=== PATIENT | female | born 1970 ===

== ENCOUNTER 2024-09-20 16:00 | Outpatient (RCR) | payer OTHER, SELFPAY ==
--- NOTE | 2024-08-01 17:07 | MHC.PT.EP ---
[facility] [place] Office [place] [facility] [place] [facility] [address] [phone] F: [phone] F: [phone] F: [phone] F: [phone] Physical Therapy Plan of Care Date of Evaluation: 08/01/24 Date of Surgery: Diagnosis: L hip OA Assessment: Pt is a 53 y/o F who is referred to PT for eval and treat of L hip OA resulting in decreased tolerance or ability for walking, sleeping, sitting and getting dressed secondary to decreased hip strength and ROM, TTP greater trochanter, proximal quds and gait abnormality. Pt is motivated and is deemed an appropriate candidate to receive skilled PT services to address their physical impairments in order to improve her function. Frequency and Duration: The patient will be seen 2x/week for 4 weeks Short Term Goals: Initiate home exercise program. Pt will improve L hip flex ROM to 90 deg; initial 30 deg painful. Pt will report at most 6/10 pain; initial 10/10. Chcf Goals: Pt will be I with home exercise program. Pt will improve B hip abd strength by 1/2 grade; initial 4/5. Pt will report at most moderate difficulty with light HH activities; initial extreme difficulty or unable. Pt will improve LEFI score by at least 9 points. Treatment Plan: Modalities to reduce pain, spasms and effusion. Manual therapy to restore motion and function. Therapeutic exercise to improve strength and flexibility. Neuromuscular re-education for posture and balance. Therapeutic activities to return to functional activities of daily living. Electronically signed by: Chapo Mai PT. Please sign and return to therapist. Thank you for your referral.
--- NOTE | 2024-09-22 09:58 | MHC.PT.DC ---
[facility] [place] Office [place] Office [place] Office [address] [phone] F: [phone] F: [phone] F: [phone] F: [phone] Physical Therapy Discharge Report Diagnosis: L hip OA Date of Surgery: Date of Evaluation: 08/01/24 Date of Discharge: 09/22/24 Treatments to Date: 9 Cancellations to Date: No Shows to Date: Discharge Status: Independent with HEP Recommend MD Follow-up Discharge Summary: Brit has been an active participant in her therapy however she continues to report her same pain and complaints of function persist; She is recommended to f/u with her MD providers. Electronically signed by: Chapo Mai PT. Please sign and return to therapist. Thank you for your referral.
== END 2024-09-22 09:57 | disposition home or self-care (01) ==
LOC: HO.PT 16:00
PROVIDERS: PCP Nurse Practitioner; Visit Provider Orthopaedic Surgery
DX: M16.12 Unilateral primary osteoarthritis, left hip (principal)
CPT/HCPCS: 97110; 97161; 97530

== ENCOUNTER → 2024-11-21 14:14 | Outpatient (BNVA) | payer OTHER, SELFPAY | DX: Z01.818 Encounter for other preprocedural examination (principal) ==

== ENCOUNTER 2024-12-21 10:10 | Outpatient (REF) | payer OTHER, SELFPAY ==
--- OUTSIDE RECORDS SUMMARY | 2024-12-22 11:02 | XMS_ITS | Encounter Summary ---
Author Organization [facility] Address [address] [place] [address] Care Team Providers Care Oven Press Tender Name Role Phone Tari Nam NP Primary Care Provider Reason for Visit * Reason Comments Pre-op Clearance Encounter Details Date Type Department Care Team (Latest Contact Info) Description 11/27/2024 2:00 PM EST Office Visit [facility] [place] [address] [place] [phone] Tari Nam NP [address] [facility] [address] Primary osteoarthritis of left hip (Primary Dx) Social History Tobacco Use Types Packs/Day Years Used Date Smoking Tobacco: Some Days Cigarettes 0.1 10 Smokeless Tobacco: Never Tobacco Cessation:Ready to Q uit: Not Asked; Counseling Given: Not Answered Alcohol Use Standard Drinks/Week Comments Yes 0 (1 standard drink = 0.6 oz pur e alcohol) Occasional Social Connections Answer Date Recorded Connectedness 1 09/11/2024 Financial Resource Strain Answer Date R ecorded Financial Resource Strain 1 2023 Stress Answer Date Recorded Stress 1 09/11/2024 Physical Activity Answer Date Recorded Physical Activity 0 08/08/2019 Food Insecurity Answer Date Recorded Food 1 09/11/2024 Transportation Needs Answer Date Record ed Transportation 1 09/11/2024 Housing Stability Answer Date Recorded Housing 1 09/11/2024 Safety and Environment Answer Date Issa rded Safety 1 03/01/2024 Utilities Answer Date Recorded Utilities 1 09/11/2024 Employment Answer Date Recorded Stress 0 08/05/2023 Comments No Sex and Gender Information Value Date Recorded Sex Assigned at Female 08/08/2019 2:38 PM PDT Legal Sex Female 8:14 AM PDT Gender Identity Female 08/08/2019 2:38 PM PDT Sexual Orientation Straight 08/08/2019 2: 38 PM PDT Occupation Industry Job Start Date Job End Date [employer] Not on file Not on file Not on file COVID-19 Exposure Response Date Recorded In the last 10 days, have rohan u been in contact with someone who was confirmed or suspected to have Coronavirus/COVID-19? No / Unsure 11/27/2024 1:43 PM EST documented as of this encounter Last Filed Vital Signs Vital Sign [place] Time Taken Comments Blood Pressure 128/80 11/27/2024 2:01 PM EST Pulse 98 11/27/2024 2:01 PM EST Temperature 36.6 ??C (97.9 ??F) 11/27/2024 2:01 PM ES T Respiratory Rate 18 11/27/2024 2:01 PM EST Oxygen Saturation 99% 11/27/2024 2:01 PM EST Inhaled Oxygen Concentration - - Weight 75.3 kg (166 lb) 11/27/2024 2:01 PM EST Height 152.4 cm (5') 11/27/2024 2:01 PM EST Body Mass Index 32.42 11/27/2024 2:01 PM EST documented in this encounter Progress Notes * Tari Nam NP - 11/27/2024 2:31 PM EST I have reviewed the patient???s medical history, physical exam findings, laboratory and/or images, and the assessment and plan as documented in above mentioned note. I am in agreement with the plan of care as documented in the note by Yuan WISEMAN student * Yuan Askew - 11/27/2024 2:00 PM EST Subjective: CC: Left total hip replacement pre-op Finished Cigar Maker: None, provider speaks patient's familiar language HPI: Brit ABBASI is a 54 year old female patient who presents to the office today for preoperative evaluation. She has a left total hip replacement scheduled with Dr. Mckinney at [facility]. Patient denies any history of respiratory problems, including asthma, wheezing, pneumonia, COPD, shortness of breath, or obstructive sleep apnea. She is a current smoker, but is working on smoking cessation. She reports smoking 2 cigarettes/day. Also reports a family history of COPD in her mother. Recently experienced stress due to her father???s hospitalization for heart attack this week. Denies any history of cardiac complications, arrhythmia, murmur, seizures, or stroke. Denies history of drug oralcohol abuse. Denies any history of infections, including tuberculosis, hepatitis B or C, or HIV. Used ibuprofen in October 2024 due to inability to take pain medications but is not currently taking tramadol or using compression stockings. Denies any history of bleeding disorders or adverse reactions to anesthesia. Type of surgical procedure: Left total hip replacement Name of surgeon: Guilherme Mckinney MD Date of procedure: 12/27/2024 Pre-operative testing requested by surgeon: Labs, EKG Pre-operative risks Respiratory limitations (hx asthma, wheezing, pnuemonia, COPD, SOB, cough, PATTY, smoking hx, lung CAhx, uses O2):Yes - Current smoker (2 cigarettes/day) Cardiac limitations (hx IA, CABG, pacemaker, arrhythmias, murmur): No Neuro (hx seizures, CVA): No Previous surgical hx: Past Surgical History: Procedure Laterality Date ABDOMINAL HERNIA REPAIR CYSTOCELE REPAIR HYSTERECTOMY, PARTIAL Hx blood clots, bleeding disorders, or anti-coagulants: No Hx adverse reaction to anesthesia: No H/o drug or alcohol abuse: No H/o infections disease (TB, Hepatitis, HIV): No Medications pt is on: Current Outpatient Medications Medication Sig Dispense Refill traMADoL (ULTRAM) 50 mg tablet Take 1 Tablet by mouth 4 (four) times daily as needed for pain 20 Tablet 0 comp.stocking,thigh,long,large Please dispense 1 pairs of compression stockings 15 mmhg . lifetime 3 Each 11 No current facility-administered medications for this visit. Patient Active Problem List Diagnosis Arthritis Vitamin D deficiency Chronic left hip pain Primary osteoarthritis of left hip Osteoarthritis of right knee Class 1 obesity due to excess calories with serious comorbidity and body mass index (BMI) of 33.0 to 33.9 in adult Varicose veins of both lower extremities No Known Allergies Review of systems Review of Systems Remainder ROS: See HPI, systems reviewed and are otherwise negative or noncontributory. Objective: Vitals: 11/27/24 1401 BP: 128/80 Pulse: 98 Resp: 18 Temp: 97.9 ??F (36.6 ??C) TempSrc: Oral SpO2: 99% Weight: 166 lb (75.3 kg) Height: 5' (1.524 m) Body mass index is 32.42 kg/m??. Physical Exam Lifestyle measures:BMI follow up plan: The patient was counseled regarding nutrition and physical activity. Tobacco Intervention:provided tobacco cessation counseling provided smoking cessation counseling Depression screen: PHQ-9 Total Score (Auto Calculated) 0 at 09/11/2024 1:00 PM 11/27/2024 2:01 PM How many times in the past year have you had 4 or more drinks in a day? NONE How many times in the past year have you used a recreational drug or used a prescription medicationfor nonmedical reasons? NONE The 10-year ASCVD risk score (Shayna CORONADO, et al., 2019) is: 4% Assessment and Plan: Brit ABBASI is a 54 year old female patient who was seen today for evaluation of preop clearance M16.12 Primary osteoarthritis of left hip (primary encounter diagnosis) Plan : BLOOD COUNT COMPLETE AUTOMATED - Patient has a left total hip replacement scheduled for 12/27/24. - Ordered CBC to check on RBC. Previous 06/2024 CBC showed RBC of 3.57. - No ECG abnormalities today. Normal sinus rhythm. Plan Perioperative surgical recommendations: No absolute contraindication to surgery . No blood things before surgery, concults with surgeon fo rany medication to hold if needed documented in this encounter Miscellaneous Notes * Patient Instructions - Tari Nam NP - 11/27/2024 2:32 PM EST If you are not able to keep your appointment please call 24-48 hours before your appointment to cancel or reschedule. documented in this encounter Plan of Treatment Scheduled Orders Name Type Priority Associated Diagnoses Orde r Schedule BLOOD COUNT COMPLETE AUTOMATED Lab Routine Primary osteoarthritis of left hip Ordered: 11/27/2024 documented as of this encounter Visit Diagnoses Diagnosis Primary osteoarthritis of left hip- Primary Primary localized osteoarthrosis, pelvic region and thigh documented in this encounter Additional Health Concerns Assessment Noted Time PHQ-9 Depression Total Score: 0 09/11/20 24 1:00 PM PDT documented as of this encounter Care Teams Oven Press Tender Relationship Specialty Start Date End Date Tari Nam NP [facility] [id number] PCP - General Internal Medicine 08/05/22 documented as of this encounter
--- OUTSIDE RECORDS SUMMARY | 2024-12-22 11:02 | XMS_ITS | Encounter Summary ---
Author Organization [facility] Address [address] [place] [address] Care Team Providers Care Training Development Specialist Name Role Phone Tari Nam NP Primary Care Provider Encounter Details Date Type Department Care Team (Latest Contact Info) Description 12/21/2024 2:20 PM EST Telemedicine Visit [address] [id number] [place] [phone] Tari Nam NP [address] 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 No / Unsure 11/27/2024 1:43 PM EST documented as of this encounter Progress Notes * Tari Nam NP - 12/21/2024 2:46 PM EST Subjective: Brit ABBASI is a 54 year old female here for No chief complaint on file. The following visit was conducted via Telephone. I educated the patient on the terms of telehealth and the patient verbally consented to this telemedicine visit. The patient was identified using their Name, and [facility] ID. I identified myself as Tari aNm NP from [facility]. It was conducted in a private space to protect HIPPA sensitive information. Precautions were takento provide confidentiality and security and patient was made aware of privacy considerations. The patients location was obtained and is Pts home The patient was notified that the services were being provided from [facility]). The patient was notified how they can see a clinician in- person in the event of an emergency or if otherwise needed. Visit START TIME 247p END TIME 254p Green Chain Worker used during visit? No Pt having technical issues with video HPI: Brit ABBASI is 54 year old female is here for sinus symptoms. Has been experiencing a sinus infection, which initially got better but still has some symptoms. No listed allergies. Upcoming surgery is scheduled for Wednesday. Mentioned that climate change is causing issues with allergies and sinuses. No feelings of depression reported. Pharmacy location is [facility] Depression screening:DEPRESSION FU PROVIDED ( CMS-2): Counseling / education in visit and Assessed, follow-up as needed ROS Review of Systems See HPI, remainder of ROSs negative or non-contributory. PMHx Patient Active Problem List Diagnosis Arthritis Vitamin D deficiency Chronic left hip pain Primary osteoarthritis of left hip Osteoarthritis of right knee Class 1 obesity due to excess calories with serious comorbidity and body mass index (BMI) of 33.0 to 33.9 in adult Varicose veins of both lower extremities Medications Current Outpatient Medications on File Prior to Visit Medication Sig Dispense Refill traMADoL (ULTRAM) 50 mg tablet Take 1 Tablet by mouth 4 (four) times daily as needed for pain 20 Tablet 0 comp.stocking,thigh,long,large Please dispense 1 pairs of compression stockings 15 mmhg . lifetime 3 Each 11 No current facility-administered medications on file prior to visit. Objective: GENERAL/Psych: Pt sounds happy w/normal, age appropriate thought process Remaining physical exam components deferred d/t nature of telehealth encounter. Assessment/Plan: Brit ABBASI is 54 year old female is here for J32.1 Chronic frontal sinusitis (primary encounter diagnosis) Plan : AMOXICILLIN 500 MG-POTASSIUM CLAVULANATE 125 MG TABLET - Take 1 Tablet by mouth 2 (two) times daily for 7 days Follow Up: No follow-ups on file. documented in this encounter Miscellaneous Notes * Patient Instructions - Tari Nam NP - 12/21/2024 2:54 PM EST If you are not able to keep your appointment please call 24-48 hours before your appointment to cancel or reschedule. documented in this encounter Plan of Treatment Not on file documented as of this encounter Visit Diagnoses Diagnosis Chronic frontal sinusitis- Primary documented in this encounter Additional Health Concerns Assessment Noted Time PHQ-9 Depression Total Score: 0 12/21/19 25 2:53 PM PST documented as of this encounter Care Teams Training Development Specialist Relationship Specialty Start Date End Date Tari Nam NP [address] [place] [address] PCP - General Internal Medicine 08/05/22 documented as of this encounter
--- OUTSIDE RECORDS SUMMARY | 2024-12-22 11:03 | XMS_ITS | Clinical Summary ---
[facility] Address [address] [place] [address] Care Team Providers Care Marketing Analytics Manager Name Role Phone Tari Nam Primary Care Provider Surgical History Surgery Date Site/Laterality Comments TUBAL LIGATION Bilateral PROCEDURE: HISTORICAL TUBAL LIGATION BLADDER SUSPENSION PROCEDURE: HISTORICAL BLADDER SUSPENSION HERNIA REPAIR PROCEDURE: HISTORICAL HERNIA REPAIR/UMB Social History Tobacco Use Types Packs/Day Years Used Date Smoking Tobacco: Every Day Smokeless Tobacco: Never Alcohol Use Standard Drinks/Week Comments Not Currently 0 (1 standard drink = 0.6 oz pur e alcohol) Sex and Gender Information Value Date Recorded Sex Assigned at Not on file Gender Identity Not on file Sexual Orientation Not on file Obstetrics History Last Filed Vital Signs Vital Sign Reading Time Taken Comments Blood Pressure - - Pulse - - Temperature - - Respiratory Rate - - Oxygen Saturation - - Inhaled Oxygen Concentration - - Weight 76.7 kg (169 lb) 03/30/2023 1:03 PM EDT Height 152.4 cm (5') 03/30/2023 1:03 PM EDT Body Mass Index 33.01 03/30/2023 1:03 PM EDT Plan of Treatment Health Maintenance Due Date Last Done Comments Breast Cancer Screening 1968 Pneumococcal Vaccine: Pediat rics (0 to 5 Years) and At-Risk Patients (6 to 64 Years) (1 of 2 - PCV) 1974 Hepatitis B Vaccines (1 of 3 - 19+ 3-dose series) 1987 Cervical Cancer Screening: P ap Smear 1989 Zoster Vaccines (1 of 2) 2018 Colorectal Cancer Screening: Colonoscopy 10/18/2022 Depression Screening 10/18/2022 HIV Screening 10/18/2022 Hepatitis C Screening 10/18/2022 Social Influencers of Health Screening 10/18/2022 COVID-19 Vaccine ( - 2023-2 5 season) 2024 Influenza Vaccine (#1) 2024 DTaP,Tdap,and Td Vaccines (2 - Td or Tdap) 06/05/2025 06/05/2015 HIB Vaccines Aged Out No longer eligi ble based on patient's age to complete this topic HPV Vaccines Aged Out No longer eligi ble based on patient's age to complete this topic Hepatitis A Vaccines Aged Out No long er eligible based on patient's age to complete this topic IPV Vaccines Aged Out No longer eligi ble based on patient's age to complete this topic MMR Vaccines Aged Out No longer eligi ble based on patient's age to complete this topic Meningococcal ACWY Vaccine Aged Out N o longer eligible based on patient's age to complete this topic RSV Immunization Patients Un zhao 20 months Aged Out No longer eligible b ased on patient's age to complete this topic Varicella Vaccines Aged Out No longer eligible based on patient's age to complete this topic Care Teams Marketing Analytics Manager Relationship Specialty Start Date End Date Tari Nam PCP - General 06/28/24
--- OUTSIDE RECORDS SUMMARY | 2024-12-22 11:03 | XMS_ITS | Encounter Summary ---
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 No / Unsure 11/27/2024 1:43 PM EST documented as of this encounter Plan of Treatment Not on file documented as of this encounter Visit Diagnoses Not on filedocumented in this encounter Additional Health Concerns Assessment Noted Time PHQ-9 Depression Total Score: 0 09/11/20 24 1:00 PM PDT documented as of this encounter Care Teams Trigonometry Tutor Relationship Specialty Start Date End Date Tari Nam NP [address] [place] [address] PCP - General Internal Medicine 08/05/22 documented as of this encounter
--- OUTSIDE RECORDS SUMMARY | 2024-12-22 11:03 | XMS_ITS | Continuity of Care Document ---
Author Organization [facility] Address [address] [place] [address] Care Team Providers Care Science Analyst Name Role Phone Van Lawrence NP Primary Care Physician [id number] Date[facility]s): 10/30/24 - 11/29/24 [facility] [address] [place] [id number] Attending Physician: Natalya Morales Admitting Physician: Natalya Morales Referring Physician: Natalya Morales Encounter Type: Triage Allergies, Adverse Reactions, Alerts No Known Allergies Medications amoxicillin 500 mg oral capsule 0 Refills, Maintenance, 10/30/24 1:57:00 PM EST, Partial fill upon patient request if the prescription is for a schedule II opioid drug. Start Date: 10/30/24 Status: Ordered Repeat number: 1 ibuprofen 600 mg oral tablet 600 mg, 1, tablet, By Mouth, Every 6 hours, PRN, # 100 tablet, Refills 0, Tot. Refills 0, Maintenance, for pain, 06/10/20 1:21:00 PM EDT, Route to Pharmacy Electronically, [facility] #[id number],144.78, cm, 06/10/20 9:53:00 EDT, Height, 77.5, kg, 06/10/20 9:53:00 EDT, Dry Weight Start Date: 06/10/20 Status: Ordered Quantity: 100.0 Unit: tablet Repeat number: 1 MiraLax oral powder for reconstitution = 17 Gm, By Mouth, Daily, dissolve in water before taking, # 255 Gm, 0 Refills, Maintenance, 06/10/20 1:21:00 PM EDT, REC Powder, [facility] #[id number], 17 Gm By Mouth Daily,Instr:dissolve in water before taking, 144.78, cm, 06/10/20 9:53:00 EDT, Height, 77.5, kg, 06/10/20 9:53:00 EDT, Dry Weight Start Date: 06/10/20 Status: Ordered Quantity: 255.0 Unit: g Repeat number: 1 oxyCODONE 5 mg oral tablet 5 mg, 1, tablet, By Mouth, Every 6 hours, PRN, For post operative pain, # 20 tablet, Refills 0, Tot. Refills 0, Maintenance, for pain, 06/10/20 1:21:00 PM EDT, Route to Pharmacy Electronically, [facility] #[id number], Partial fill upon patient request, 144.78, cm, 06/10/20 9:53:00 EDT, Height, 77.5, kg, 06/10/20 9:53:00 EDT, Dry Weight Start Date: 06/10/20 Status: Ordered Quantity: 20.0 Unit: tablet Repeat number: 1 PEG-[id number] with Electrolytes (Eqv-NuLYTELY) oral powder for reconstitution See Instructions, as directed, # 1 each, 0 Refills, Maintenance, 03/11/21 3:05:00 PM EDT, [facility] #[id number], ok to sub for any gallon prep, as directed, 144.78, cm, 07/16/20 13:53:00 EDT, Height, 80.3, kg, 07/16/20 13:53:00 EDT, Dry Weight Start Date: 03/11/21 Status: Ordered Quantity: 1.0 Unit: each Repeat number: 1 Senna 8.6 mg oral tablet 17.2 mg, 2, tablet, By Mouth, Daily at bedtime, PRN, # 100 tablet, Refills 0, Tot. Refills 0, Maintenance, for constipation, 06/10/20 1:21:00 PM EDT, Route to Pharmacy Electronically, [facility] #[id number] Tablet, 144.78, cm, 06/10/20 9:53:00 EDT, Height, 77.5, kg, 06/10/20 9:53:00 EDT, Dry Weight Start Date: 06/10/20 Status: Ordered Quantity: 100.0 Unit: tablet Repeat number: 1 Tylenol 325 mg oral tablet 650 mg, 2, tablet, By Mouth, Every 4 hours, PRN, # 100 tablet, Refills 0, Tot. Refills 0, Maintenance, for pain, 06/10/20 1:21:00 PM EDT, Route to Pharmacy Electronically, [facility] #[id number],144.78, cm, 06/10/20 9:53:00 EDT, Height, 77.5, kg, 06/10/20 9:53:00 EDT, Dry Weight Start Date: 06/10/20 Status: Ordered Quantity: 100.0 Unit: tablet Repeat number: 1 Problem List Condition Confirmation Course Effective Dates Status H ealth Status Informant Anxiety Confirmed Active Arthritis Confirmed Active hypothyroid Confirmed Active Overactive bladder Confirmed Active Palpitations Confirmed Active tobacco use disorder Confirmed Active Severe obesity (BMI 35.0-39.9) with comorbidity Confirmed Active Nonallopathic lesion of sacral region Confirmed Active Nonallopathic lesion of thoracic region Confirmed Active Lumbosacral ligament sprain Confirmed Active Social History Social History Type Response Tobacco Use: 4 or less cigar ettes(less than 1/4 pack)/day in last 30 days. Sex Sex Representation Female (finding) Implantable Device List Procedure Provider Procedure Date Device Type Site Repair Cystocele Anterior Margie Liz MD 06/10/20 Un known Vagina Device Identifier Serial Number Lot or Batch Number Manufacturing Date Expiration Date Distinct Identification Code MRI Safety Implantable Status Assigning Authority Unknown [id number] Unknown 06/14/24 Unknown Unknown Active Unknown Patient Care team information Care Team Personnel Name: Van Lawrence NP Position: [facility] Outreach Member Role: PCP Address: [address] [place] [address] Telecom: Care Team Related Persons Name: MARGE RAMOS Name: DAKOTA RAMOS Name: KESHIA ABBASI Insurance Providers Guarantor name: CELESTINO ABBASI Health Plan Information #: 1 Payer: [employer] NON HMO PLANS Member Number: NA Policy Number: NA Group Number: NA
--- OUTSIDE RECORDS SUMMARY | 2024-12-22 11:03 | XMS_ITS | Clinical Summary ---
Author Organization [facility] Address [address] [place] [address] Care Team Providers Care Cleaning Maid Name Role Phone Tari Nam MEGAN Primary Care Provider Source Comments PLEASE NOTE, if this patient is a minor, it may be UNLAWFUL to discuss sensitive information that is contained in these records (such as FAMILY PLANNING, MENTAL HEALTH or SUBSTANCE ABUSE) with the minor patient's parent or other person without the patient's specific authorization.[facility] Allergies No known active allergies Medications comp.adrianna parsons,georgette,largeIndica tions:Varicose veins of both lower extremities, unspecified whether complicated Please dispense 1 pairs of compression stockings 15 mmhg . lifetime 3 Each 11 09/11/20 24 Active traMADoL (ULTRAM) 50 mg tabletIndications: Primary osteoarthritis of right knee,Primary osteoarthritis of left hip Take 1 Tablet by mouth 4 (four) times daily as needed for pain 20 Tablet 10/30/20 24 Active amoxicillin-pot clavulanate (AUGMENTIN) 500-125 mg per tabletIndications: Chronic frontal sinusitis Take 1 Tablet by mouth 2 (two) times daily for 7 days 14 Tablet 12/21/19 25 025 Active Active Problems Problem Noted Date Diagnosed Date Osteoarthritis of right knee 09/11/2024 Class 1 obesity due to exces s calories with serious comorbidity and body mass index (BMI) of 33.0 to 33.9 in adult 09/11/2024 Varicose veins of both lower extremities 024 Chronic left hip pain 03/01/2024 Primary osteoarthritis of left hip 03/01/2024 Overview (09/11/2024): 09/11/24: at [place], with , going to [facility] she will have surgery post therapy in 2 week tisha garcia. Vitamin D deficiency 01/26/2021 Arthritis 08/08/2019 Overview (10/29/2022): 10/29/22: Xray of hip shows arthritis, treatment includes. She will like to hold off on inj and surgery at this time. Taking naproxen when pain is severe Encounters Date Type Department Care Team Description 12/21/2024 2:20 PM EST Telemedicine Visit [facility] [address] [place] [id number] Tari Nam, PLASTICS PROCESS HAND Chronic frontal sinusitis (Primary Dx) 11/27/2024 2:00 PM EST Office Visit [facility] [address] [place] [id number] Tari Nam, PLASTICS PROCESS HAND Primary osteoarthritis of left hip (Primary Dx) 11/27/2024 Travel 10/30/2024 3:20 PM EST Office Visit [facility] [address] [place] [phone] Tari Nam, PLASTICS PROCESS HAND Frequency of urination (Primary Dx); Pelvic pressure in female; Primary osteoarthritis of right knee; Primary osteoarthritis of left hip; Acute cystitis without hematuria 10/30/2024 Travel from Last 3 Months Immunizations Name Administration Dates Next Due Flu, Multi Dose 0.5 ML 08/27/2020 Flu, Preservative Free 08/05/2023,10/29/2022 Hep B,adult,adjuvanted (HEPLISAV) 03/01/2024 Influenza (FLUBLOK),recombinant,injectable,preservative Free 09/11/2024 PNEUMOCOCCAL CONJUGATE PCV 20 (Prevnar) 03/01/20 PNEUMOCOCCAL POLYSACCHARIDE PPV23 01/16/2021 TDAP 08/08/2019,06/05/2015 ZOSTER VACCINE, RECOMBINANT (SHINGRIX) 3,01/16/2021 Family History Medical History Relation Name Comments Heart attack Father Thyroid Disease Father Cancer Other Relation Name Status Comments Brother Alive 2 brothers Father Alive Mother Alive artritis,copd Other Sister Alive 2 sister Social History Tobacco Use Types Packs/Day Years [...] 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 No / Unsure 11/27/2024 1:43 PM EST Last Filed Vital Signs Vital Sign Reading [...] Mass Index 32.42 11/27/2024 2:01 PM EST Plan of Treatment Health Maintenance Due Date Last Done Comments HPV Screening 1968 Pap + HPV [address] Colonography 2013 Colonoscopy 2013 Colorectal Cancer Screening 2013 FIT/gFOBT 2013 Fecal DNA 2013 Flexible Sigmoidoscopy 2013 Imm-Hepatitis B (2 of 2 - Cp G 2-dose series) 03/29/2024 03/01/2024 [id number] ( season) 2024 021 Depression Monitoring 03/20/2025 12/21/2024 , 09/11/2024, 07/03/2024, Additional history exists Breast Cancer Screening (Mammogram) 04/21/2025 04/21/2024, 03/29/2023, 02/13/2022 Annual Preventive Care Visit 09/11/2025, 10/29/2022, 01/16/2021 Hypertension Screening (#1) 11/27/2025 Tobacco Cessation Counseling (#1) 11/27/2025 11/27/2024, 07/03/2024, 01/16/2021 Diabetes Screening 07/03/2027 07/03/2024, 0 07/03/2024, 08/25/2022, Additional history exists Lipid Screening 11/27/2027 11/27/2024, 08/15, 01/06/2021, Additional history exists Imm-DTaP/Tdap/Td (3 - Td or Tdap) 08/08/2029 019, 06/05/2015 Hepatitis C Screening Completed 01/06/2021 HIV Screening Completed 10/29/2022, 12/17, 08/10/2019 Imm-Zoster, Recombinant Completed 02/26/2023, 01/16 Imm-Pneumococcal Completed 03/01/2024, 01/16/2021 Imm-Influenza Completed 09/11/2024, 07/17, 10/29/2022, Additional history exists Alcohol and Drug Screen Completed 11/27/19, 09/11/2024, 07/03/2024, Additional history exists Cervical Ablation/Cold-Knife Conization Discontinued Cervical Cancer Screening Discontinued Cervical Cryotherapy Discontinued Colposcopy Discontinued Endometrial Biopsy Discontinued Excision/Leep Discontinued HPV Genotyping Discontinued Vaginal Pap Discontinued Vulvoscopy Discontinued Procedures Procedure Name Priority Date/Time Associated Diagnosis Comments CARD SCANNED DOCUMENT 11/28/2024 3:00 AM EST LIPID PANEL Routine 11/27/2024 2:29 PM EST Routine general medical examination at a health care facility Class 1 obesity due to excess calories with serious comorbidity and body mass index (BMI) of 33.0 to 33.9 in adult URINE CULTURE W ID & SENS Routine 10/30/2024 3:16 PM EST RFLX - REFLEXIVE URINE CULTURE Routine 10/30/2024 3:16 PM EST URINALYSIS, COMPLETE W/REFLEX TO CULTURE Routine 10/30/2024 3:16 PM EST Frequency of urination Pelvic pressure in female URINALYSIS, MULTISTIX (POCT) Routine 10/30/2024 3:07 PM EST Frequency of urination REFERRAL TO VASCULAR SURGERY Routine 10/30/2024 3:00 AM EST Varicose veins of both lower extremities, unspecified whether complicated REFERRAL SCANNED DOCUMENT 10/09/2024 3:00 AM EST COMPREHENSIVE METABOLIC PANEL Routine 07/03/2024 3:43 PM EDT Preoperative clearance REFERRAL FOR MAMMOGRAM Routine 3:00 AM EDT Breast cancer screening by mammogram HIV 1/2 AG & AB W/RFLX (4TH GEN) Routine 10/29/2022 3:21 PM EST Screening examination for venereal disease HEPATITIS C DIAGNOSTIC (LLMM) Routine 01/06/2021 10:59 AM EST Need for hepatitis C screening test from Last 3 Months or Most Recently Relevant to Health Maintenance Results * CARD SCANNED DOCUMENT (11/28/2024 3:00 AM EST) 11/28/2024 3:00 AM EST us Tari Nam PLASTICS PROCESS HAND SCAN ECGS Final Result * (ABNORMAL) LIPID PANEL (11/27/2024 2:29 PM EST) CHOLESTEROL, TOTAL 140 <200 mg/dL [facility] HDL CHOLESTEROL 49(L) > OR = 50 mg/dL [facility] TRIGLYCERIDES 83 <150 mg/dL [facility] LDL-CHOLESTEROL 74 99 mg/dL (calc) [facility] Comment: Reference range: <100 Desirable range <100 mg/dL for primary prevention; ?? <70 mg/dL for patients with CHD or diabetic patients with > or = 2 CHD risk factors. LDL-C is now calculated using the Oneal calculation, which is a validated novel method providing better accuracy than the Friedewald equation in the estimation of LDL-C. Zak WINSTON et al. DARSHAN. 2013;310(19): 7826-2479 (http://education.MixGenius/faq/EEX682) CHOL/HDLC RATIO 2.9 <5.0 (calc) [facility] NON-HDL CHOLESTEROL 91 <130 mg/dL (calc) [facility] Comment: For patients with diabetes plus 1 major ASCVD risk factor, treating to a non-HDL-C goal of <100 mg/dL (LDL-C of <70 mg/dL) is considered a therapeutic option. Blood Blood / Unknown 11/27/2024 2 :29 PM EST 11/27/2024 2:30 PM EST Narrative [facility] - 11/28/2024 5:30 AM EST FASTING:NO Tari Nam PLASTICS PROCESS HAND LAB - BLOOD DRAW Final Resul t [facility] [address] [address], [facility] [address] [address] * (ABNORMAL) URINE CULTURE W ID & SENS (10/30/2024 3:16 PM EST) Pathologist [facility] CULTURE See Note(A) [facility] Comment: ??CULTURE, URINE, ROUTINE ?Micro Number: ?[id number] ??Test Status: ? Final ??Specimen Source: ?? Urine ??Specimen Quality: ??Adequate ??Result: ?Greater than 100,000 CFU/mL of Escherichia coli ?E.coli ?INT ?? ROBINSON ?? AMOX/CLAVULANATE ? I ? 16 ?? AMP/SULBACTAM ?R ? >=32 ?? CEFAZOLIN ?R ? 8 1 ?? CEFEPIME ? S ? <=0.12 ?? CEFTAZIDIME ?S ? <=1 ?? CEFTRIAXONE ?S ? <=0.25 ?? CIPROFLOXACIN ?S ? 0.12 ?? GENTAMICIN ? R ? >=16 ?? IMIPENEM ? S ? <=0.25 ?? LEVOFLOXACIN ? S ? 0.25 ?? MEROPENEM ?S ? <=0.25 ?? NITROFURANTOIN ? S ? <=16 ?? PIP/TAZOBACTAM ? I ? 64 ?? TRIMETHOPRIM/SULFA ? R ? >=320 S = Susceptible ??I = Intermediate ??R = Resistant ??NS = Not susceptible SDD = Susceptible Dose Dependent ??* = Not Tested ??NR = Not Reported NN = See Therapy Comments THERAPY COMMENTS ?Note 1: ?For uncomplicated UTI caused by E. coli, ?K. pneumoniae or P. mirabilis: Cefazolin is ?susceptible if ROBINSON <32 mcg/mL and predicts ?susceptible to the oral agents cefaclor, cefdinir, ?cefpodoxime, cefprozil, cefuroxime, cephalexin ?and loracarbef. 10/30/2024 3:16 PM EST 10/31/2024 3:56 AM EST us Tari Nam NP LAB - NO BLOOD DRAW Final Re sult [facility] [address] [place] [id number], [facility] [address] [place] [phone] * (ABNORMAL) URINALYSIS, COMPLETE W/REFLEX TO CULTURE (10/30/2024 3:16 PM EST) COLOR YELLOW YELLOW [facility] APPEARANCE CLOUDY(A) CLEAR [facility] SPECIFIC GRAVITY 1.012 1.001 - 1.035 [facility] URINE PH 6.0 5.0 - 8.0 [facility] GLUCOSE NEGATIVE NEGATIVE [facility] BILIRUBIN NEGATIVE NEGATIVE [facility] KETONES NEGATIVE NEGATIVE [facility] OCCULT BLOOD 1+(A) NEGATIVE [facility] URINE PROTEIN NEGATIVE NEGATIVE [facility] NITRITE POSITIVE(A) NEGATIVE [facility] LEUKOCYTE ESTERASE 3+(A) NEGATIVE [facility] URINE LEUKOCYTES 20-40(A) 0 - 5 /HPF [facility] RBC 3-10(A) 0 - 2 /HPF [facility] SQUAMOUS EPITHELIAL CELLS 6-10(A) < OR = 5 /HPF [facility] BACTERIA MANY(A) NONE SEEN [facility] HYALINE CAST NONE SEEN NONE SEEN [facility] SEE NOTE See Below [facility] Comment: This urine was analyzed for the presence of WBC, RBC, bacteria, casts, and other formed elements. Only those elements seen were reported. Urine Urine specimen / Unknown 10/30/2024 3:16 PM EST 10/31/2024 3:56 AM EST Tari Nam PLASTICS PROCESS HAND LAB - NO BLOOD DRAW Edited [email or web address] Performing Organization Address [facility]/ZIP Co de Phone Number [facility] [address] [address], [facility] [address] [address] * RFLX - REFLEXIVE URINE CULTURE (10/30/2024 3:16 PM EST) REFLEXIVE URINE CULTURE See Below [facility] Comment:CULTURE INDICATED - RESULTS TO FOLLOW 10/30/2024 3:16 PM EST 10/31/2024 3:56 AM EST Tari Nam PLASTICS PROCESS HAND LAB - NO BLOOD DRAW Edited [employer] Performing Organization Address [facility] Co de Phone Number [facility] [address] [address], [facility] [address] [address] * (ABNORMAL) URINALYSIS, MULTISTIX (POCT) (10/30/2024 3:07 PM EST) URINE GLUCOSE NEGATIVE NEGATIVE [facility] BACK OFF[facility] POCT URINE BILIRUBIN NEGATIVE NEGATIVE [facility] POCT URINE KETONES NEGATIVE NEGATIVE [facility] POCT URINE SPECIFIC GRAVITY 1.025 <=1.005 - >=1.030 [facility] BACK [facility] POCT URINE BLOOD TRACE HEMOLYZED(A) NEGATIVE [facility] POCT URINE PH 5.5 5.0 - 8.5 [facility] BACK OFFICE POCT URINE PROTEIN Negative Negative [facility] POCT URINE UROBILINOGEN 0.2 0.2 - 1.0 E.U./dL [facility] POCT URINE NITRITE NEGATIVE NEGATIVE [facility] BACK [facility] POCT URINE LEUKOCYTES MODERATE(A) NEGATIVE [facility] POCT URINE COLOR YELLOW STRAW, YELLOW [facility] POCT ODOR URINE Normal Normal [facility] POCT CLARITY OF URINE CLOUDY(A) CLEAR [facility] POCT Urine Urine specimen / Unknown 10/30/2024 3:07 PM EST us Tari Nam NP LAB - NO BLOOD DRAW Final Re sult [facility] POCT * REFERRAL TO VASCULAR SURGERY (10/30/2024 3:00 AM EST) 10/30/2024 3:00 AM EST us Tari Nam NP REFERRAL Final Result * REFERRAL SCANNED DOCUMENT (10/09/2024 3:00 AM EST) 10/09/2024 3:00 AM EST us Tari Nam NP SCAN REFERRAL Final Result * (ABNORMAL) COMPREHENSIVE METABOLIC PANEL (07/03/2024 3:43 PM EDT) GLUCOSE 97 65 - 99 mg/dL [facility] Comment: ?Fasting reference interval UREA NITROGEN (BUN) 12 7 - 25 mg/dL [facility] CREATININE (blood) 0.47(L) 0.50 - 1.03 mg/dL [facility] EGFR 112 > OR = 60 mL/min/1. 73m2 [facility] BUN/CREATININE RATIO 26(H) 6 - 22 (calc) [facility] SODIUM 138 135 - 146 mmol/L [facility] POTASSIUM 3.9 3.5 - 5.3 mmol/L [facility] CHLORIDE 106 98 - 110 mmol/L [facility] CARBON DIOXIDE 27 20 - 32 mmol/L [facility] CALCIUM 9.1 8.6 - 10.4 mg/dL [facility] PROTEIN, TOTAL 6.8 6.1 - 8.1 g/dL [facility] ALBUMIN 4.1 3.6 - 5.1 g/dL [facility] GLOBULIN 2.7 1.9 - 3.7 g/dL (calc) [facility] ALBUMIN/GLOBULI N RATIO 1.5 1.0 - 2.5 (calc) [facility] BILIRUBIN, TOTAL 0.3 0.2 - 1.2 mg/dL [facility] ALKALINE PHOSPHATASE 105 37 - 153 U/L [facility] AST 15 10 - 35 U/L [facility] ALT 9 6 - 29 U/L [facility] Blood Blood / Unknown 07/03/2024 3 :43 PM EDT 07/03/2024 3:43 PM EDT Tari Nam NP LAB - BLOOD DRAW Edited Resu lt - Final [facility] [address] [address], [facility] [address] [address] * REFERRAL FOR MAMMOGRAM (04/21/2024 3:00 AM EDT) 04/21/2024 3:00 AM EDT Santana Briggs PA-C IMG RFL MAMMO Edited Resul t - Final * HIV 1/2 AG & AB W/RFLX (4TH GEN) (10/29/2022 3:21 PM EST) HIV AG/AB, 4TH GEN NON-REAC TIVE NON-REAC TIVE [facility] Comment: HIV-1 antigen and HIV-1/HIV-2 antibodies were not detected. There is no laboratory evidence of HIV infection. PLEASE NOTE: This information has been disclosed to you from records whose confidentiality may be protected by state law. ??If your state requires such protection, then the state law prohibits you from making any further disclosure of the information without the specific written consent of the person to whom it pertains, or as otherwise permitted by law. A general authorization for the release of medical or other information is NOT sufficient for this purpose. ?? For additional information please refer to http://education.Smart Device Media.Sara Campbell/faq/JYE054 (This link is being provided for informational/ educational purposes only.) The performance of this assay has not been clinically validated in patients less than 2 years old. Blood Blood / Unknown 10/29/2022 3 :21 PM EST 10/29/2022 3:22 PM EST Narrative [facility] - 11/01/2022 7:54 AM EST COLLECTION KIT GIVEN TO PATIENT. PATIENT ADVISED TO RETURN. Tari Nam NP LAB - BLOOD DRAW Final Resul t [facility] [address] [place] [address], [facility] [address] ([address]) [place] [address] * HEPATITIS C DIAGNOSTIC (LLMM) (01/06/2021 10:59 AM EST) HEPATITIS C VIRUS DIAGNOSTIC NEGATIVE NEGATIVE [facility] 01/06/2021 10:5 9 AM EST 01/06/2021 4:00 PM EST [facility] 01/06/2021 5:50 PM EST [email or web address], [place] [address] [employer] Assemblies Installer - Christy Oviedo MD PT ID [id number] ORD# [id number] Santana Briggs PA-C LAB - BLOOD DRAW Edited Resu lt - Final [facility] [address], from Last 3 Months or Most Recently Relevant to Health Maintenance Insurance [employer] Care Teams Cleaning Maid Relationship Specialty Start Date End Date Tari Nam NP [address] [place] [address] PCP - General Internal Medicine 08/05/22
== END 2024-12-21 10:11 | disposition home or self-care (01) ==
LOC: HO.HOSX 10:10
PROVIDERS: Visit Provider Physician Assistant
DX: Z13.89 Encounter for screening for other disorder (principal)

== ENCOUNTER → 2024-12-22 14:26 | Outpatient (BNV) | payer OTHER, SELFPAY | PROVIDERS: PCP Nurse Practitioner; Visit Provider Radiology Diagnostic Radiology | DX: M16.12 Unilateral primary osteoarthritis, left hip (principal) | CPT/HCPCS: 73502 ==

== ENCOUNTER → 2024-12-27 11:30 | Outpatient (BNV) | payer OTHER, SELFPAY | PROVIDERS: Visit Provider Radiology Diagnostic Radiology | DX: Z96.642 Presence of left artificial hip joint (principal) | CPT/HCPCS: 72170 ==

== ENCOUNTER 2025-02-01 11:21 | Outpatient (REF) | payer OTHER, SELFPAY ==
--- NOTE | ~2025-02-01 | XR_ITS ---
EXAMINATION: XR PELVIS 1-2 VIEWS HISTORY: M25.559 - Pain in unspecified hip COMPARISON: Comparison is made with the prior examination dated 12/27/2024. FINDINGS: A single AP view of the pelvis is submitted. The patient is status post left total hip arthroplasty. The orthopedic elements are in anatomic alignment on this single AP view. There is no radiographic evidence of loosening. There is no fracture or dislocation. The soft tissues are unremarkable. XR/XR pelvis 1-2V IMPRESSION: Status post left total hip arthroplasty. Electronically signed by: Melvin Ng MD 02/02/2025 08:10 AM EDT
== END 2025-02-01 11:22 | disposition home or self-care (01) ==
LOC: HO.HOSX 11:21
PROVIDERS: Visit Provider Orthopaedic Surgery
DX: Z47.1 Aftercare following joint replacement surgery (principal); Z96.642 Presence of left artificial hip joint
CPT/HCPCS: 72170

== ENCOUNTER 2025-02-01 12:13 | Outpatient (AMB) | payer OTHER, SELFPAY ==
--- NOTE | 2025-02-01 12:20 | MHC.OFFVIS ---
Vital Signs 02/01/25 12:21 Height 5 ft Weight 165 lb BMI 32.2 Intake Visit Reasons: 6WK PO: L SINGH w/NE 12/27/24 Intake Note: Brit is a 54 year old female who presents today for a post operative appointment about 6 weeks s/p left total hip arthroplasty 12/27/24 NE. Patient reports she has been taking the oxycodone and Tylenol as needed for pain and has found relief. She has discontinued use of the aspirin 325 mg. She expresses she has been doing at home stretches and exercises. She utilities a cane for ambulation and states this has been okay for her. Allergies No Known Allergies Allergy (Verified 02/01/25 12:22) HPI HPI 6WK PO: L SINGH w/NE 12/27/24: Details: Brit is a 54 year old female who presents today for a post operative appointment about 6 weeks s/p left total hip arthroplasty 12/27/24 NE. Patient reports she has been taking the oxycodone and Tylenol as needed for pain and has found relief. She has discontinued use of the aspirin 325 mg. She expresses she has been doing at home stretches and exercises. She utilities a cane for ambulation and states this has been okay for her. [facility] Medical History (Updated 01/19/25 @ 10:12 by Peggy Alas) Anxiety Osteoarthritis Vitamin D deficiency Arthritis Surgical History (Updated 01/19/25 @ 10:12 by Peggy Alas) History of bladder suspension procedure Hx of umbilical hernia repair Hx of hysterectomy Social History Household Members Other:: brother Housing: House Are you a primary careers adviser to a significant other at home: No Do you presently have visiting nurse or other home services: No 75 years or older and lives alone: No Patient Tobacco Use Status: Current everyday Tobacco user Tobacco use type: Cigarette Cigarettes Per Day: 1 Second Hand Smoke Exposure: No Substance Use Type: Marijuana service: No Current occupational status: employed 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 Left SINGH in expected post operative position with no hardware complications or evidence of looseningNo pain with Assessment & Plan Assessment & Plan (1) Status post left hip replacement: Code(s): Z96.642 - Presence of left artificial hip joint Category: Surgical Plan: Doing well but doesn't want to go to formal PT. I demonstrated some exercises to rectify her disordered gait pattern. F/u 6 weeks. March d/c asa Orders: Orders XR pelvis 1-2V 02/01/25 M25.559 - Pain in unspecified hip Medications: Discontinued docusate sodium Discontinued Reason: Patient no longer taking 100 mg PO BID 14 days 28 caps 0RF aspirin Discontinued Reason: Patient no longer taking 325 mg PO BID 42 days 84 tabs 0RF Coding Level of Care Code Global (23038) Diagnoses Status post left hip replacement Z96.642
[2025-02-01 12:21] VITALS: BMI 32.2
== END 2025-02-01 13:03 | disposition home or self-care (01) ==
LOC: HO.HOS 12:14
PROVIDERS: PCP Nurse Practitioner; Visit Provider Orthopaedic Surgery
DX: Z96.642 Presence of left artificial hip joint (principal)
CPT/HCPCS: 99024

== ENCOUNTER → 2025-02-01 12:15 | Outpatient (BNV) | payer OTHER, SELFPAY | PROVIDERS: Visit Provider Radiology Diagnostic Radiology | DX: Z96.642 Presence of left artificial hip joint (principal) | CPT/HCPCS: 72170 ==

== ENCOUNTER 2025-03-16 08:57 | Outpatient (REF) | payer OTHER, SELFPAY ==
--- NOTE | ~2025-03-16 | XR_ITS ---
EXAMINATION: XR PELVIS 1-2 VIEWS HISTORY: M25.559 - Pain in unspecified hip COMPARISON: Comparison is made with the prior examination dated 02/01/2025. FINDINGS: A single AP view of the pelvis is submitted. The patient is again noted to be status post left total hip arthroplasty. The orthopedic elements are in anatomic alignment on this single AP view. There is no radiographic evidence of loosening. There is no fracture or dislocation. There is mild narrowing of the right hip joint. The sacroiliac joints are maintained. The soft tissues are unremarkable. XR/XR pelvis 1-2V IMPRESSION: Status post left total hip arthroplasty. Electronically signed by: Melvin Ng MD 03/16/2025 03:10 PM EDT
--- OUTSIDE RECORDS SUMMARY | 2025-03-17 08:59 | XMS_ITS | Clinical Summary ---
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 12/22/2024 3:00 AM EST us Tari Nam ENTRY MANAGER SCAN IMAGING Final Result * (ABNORMAL) LIPID PANEL (11/27/2024 2:29 PM EST) CHOLESTEROL, TOTAL 140 <200 mg/dL [email or web address] HDL CHOLESTEROL 49(L) > OR = 50 mg/dL [email or web address] TRIGLYCERIDES 83 <150 mg/dL [email or web address] LDL-CHOLESTEROL 74 99 mg/dL (calc) [email or web address] Comment: Reference range: <100 Desirable range <100 mg/dL for primary prevention; ?? <70 mg/dL for patients with CHD or diabetic patients with > or = 2 CHD risk factors. LDL-C is now calculated using the Oneal calculation, which is a validated novel method providing better accuracy than the Friedewald equation in the estimation of LDL-C. Zak SS et al. DARSHAN. 2013;310(19): 4026-8216 (http://education.[employer]/faq/MXJ582) CHOL/HDLC RATIO 2.9 <5.0 (calc) [facility] NON-HDL CHOLESTEROL 91 <130 mg/dL (calc) [facility] Comment: For patients with diabetes plus 1 major ASCVD risk factor, treating to a non-HDL-C goal of <100 mg/dL (LDL-C of <70 mg/dL) is considered a therapeutic option. Blood Blood / Unknown 11/27/2024 2 :29 PM EST 11/27/2024 2:30 PM EST Narrative [email or web address] - 11/28/2024 5:30 AM EST FASTING:NO us Tari Nam NP LAB - BLOOD DRAW Final Resul t [email or web address] [address] [address], [email or web address] [facility] [address] [place] [address] * (ABNORMAL) COMPREHENSIVE METABOLIC PANEL (07/03/2024 3:43 PM EDT) GLUCOSE 97 65 - 99 mg/dL [email or web address] Comment: ?Fasting reference interval UREA NITROGEN (BUN) 12 7 - 25 mg/dL [email or web address] CREATININE (blood) 0.47(L) 0.50 - 1.03 mg/dL [email or web address] EGFR 112 > OR = 60 mL/min/1. 73m2 [email or web address] BUN/CREATININE RATIO 26(H) 6 - 22 (calc) [email or web address] SODIUM 138 135 - 146 mmol/L [email or web address] POTASSIUM 3.9 3.5 - 5.3 mmol/L [email or web address] CHLORIDE 106 98 - 110 mmol/L [email or web address] CARBON DIOXIDE 27 20 - 32 mmol/L [email or web address] CALCIUM 9.1 8.6 - 10.4 mg/dL [email or web address] PROTEIN, TOTAL 6.8 6.1 - 8.1 g/dL [email or web address] ALBUMIN 4.1 3.6 - 5.1 g/dL [email or web address] GLOBULIN 2.7 1.9 - 3.7 g/dL (calc) [email or web address] ALBUMIN/GLOBULI N RATIO 1.5 1.0 - 2.5 (calc) [email or web address] BILIRUBIN, TOTAL 0.3 0.2 - 1.2 mg/dL [email or web address] ALKALINE PHOSPHATASE 105 37 - 153 U/L [email or web address] AST 15 10 - 35 U/L [email or web address] ALT 9 6 - 29 U/L [email or web address] Blood Blood / Unknown 07/03/2024 3 :43 PM EDT 07/03/2024 3:43 PM EDT Tari Nam ENTRY MANAGER LAB - BLOOD DRAW Edited Resu lt - Final [email or web address] [address] [address], [email or web address] [facility] [address] [place] [address] * REFERRAL FOR MAMMOGRAM (04/21/2024 3:00 AM EDT) 04/21/2024 3:00 AM EDT Santana Briggs PA-C IMG RFL MAMMO Edited Resul t - Final * HIV 1/2 AG & AB W/RFLX (4TH GEN) (10/29/2022 3:21 PM EST) HIV AG/AB, 4TH GEN NON-REAC TIVE NON-REAC TIVE [email or web address] Comment: HIV-1 antigen and HIV-1/HIV-2 antibodies [...] ?? For additional information please refer to http://education.[employer]/faq/BNZ749 (This link is being provided for informational/ educational purposes only.) The performance of this assay has not been clinically validated in patients less than 2 years old. Blood Blood / Unknown 10/29/2022 3 :21 PM EST 10/29/2022 3:22 PM EST Narrative [facility] [employer] - 11/01/2022 7:54 AM EST COLLECTION KIT GIVEN TO PATIENT. PATIENT ADVISED TO RETURN. Tari Nam ENTRY MANAGER LAB - BLOOD DRAW Final Resul t Performing Organization Address [facility]/ZIP Co de Phone Number [facility] [employer] [address] [facility] [address] [place] [address], [facility] [address] [facility] (NL[address]) [place] [address] * HEPATITIS C DIAGNOSTIC (LLMM) (01/06/2021 10:59 AM EST) HEPATITIS C VIRUS DIAGNOSTIC NEGATIVE NEGATIVE [facility] 01/06/2021 10:5 9 AM EST 01/06/2021 4:00 PM EST Narrative [facility] - 01/06/2021 5:50 PM EST [employer], [place] [address] Seed Specialist - Christy Oviedo MD PT ID [id number] ORD# [id number] Santana Briggs PA-C LAB - BLOOD DRAW Edited Resu lt - Final Performing Organization Address City/[facility] Co de Phone Number [facility] [employer] [address], from Last 3 Months or Most Recently Relevant to Health Maintenance Insurance [employer] Care Teams Clinical Tech Relationship Specialty Start Date End Date Tari Nam NP [address] [place] [address] PCP - General Internal Medicine 08/05/22
== END 2025-03-16 08:58 | disposition home or self-care (01) ==
LOC: HO.HOSX 08:57
PROVIDERS: Visit Provider Physician Assistant
DX: M25.559 Pain in unspecified hip (principal); Z96.642 Presence of left artificial hip joint
CPT/HCPCS: 72170

== ENCOUNTER 2025-03-16 11:12 | Outpatient (AMB) | payer OTHER, SELFPAY ==
--- NOTE | 2025-03-16 11:24 | A.OFFVIS_ITS ---
Intake Visit Reasons: PO: L SINGH w/NE 12/27/24-6WK follow up Intake Note: Brit is a 54 year old female who presents today for a post operative appointment s/p left total hip arthroplasty 12/27/24 NE. Patient reports she continues to have pain in her hip and she feels her pain moves the groin area. Allergies No Known Allergies Allergy (Verified 03/16/25 11:29) HPI HPI PO: L SINGH w/NE 12/27/24-6WK follow up: Details: Ms. Lau is a 54-year-old female who presents to the office today status post left total hip arthroplasty performed on 12/27/[address] Mckinney. Patient reports that she has been attending physical therapy. She continues to have soreness near the incision site and in the groin. She is using a cane to assist with ambulation. PFSH Medical History (Updated 01/19/25 @ 10:12 by Peggy Alas) Anxiety Osteoarthritis Vitamin D deficiency Arthritis Surgical History (Updated 01/19/25 @ 10:12 by Peggy Alas) History of bladder suspension procedure Hx of umbilical hernia repair Hx of hysterectomy Social History Household Members Other:: brother Housing: House Are you a primary associate director career services to a significant other at home: No Do you presently have visiting nurse or other home services: No 75 years or older and lives alone: No Patient Tobacco Use Status: Current everyday Tobacco user Tobacco use type: Cigarette Cigarettes Per Day: 1 Second Hand Smoke Exposure: No Substance Use Type: Marijuana service: No Current occupational status: employed Current occupation: [employer] Review of Systems Const All systems reviewed & are unremarkable except as noted in HPI and below Physical Exam Extrem Other: Left hip: No pain with hip range of motion. NVI. Assessment & Plan Assessment & Plan (1) Status post left hip replacement: Code(s): Z96.642 - Presence of left artificial hip joint Category: Surgical Plan Ms. Lau is a 54-year-old female who presents to the office today status post left total hip arthroplasty performed on 12/27/[address] Mckinney. Patient reports that she has been attending physical therapy. She continues to have soreness near the incision site and in the groin. She is using a cane to assist with ambulation. Mild in the office today, I recommended the patient continue working with physical therapy. She is experiencing some soreness which is likely due to physical therapy and trying to establish a normal gait pattern. She will continue using the cane as needed to assist with ambulation. She will remain out of work until follow-up as she is a [employer]. She will follow up in 8 weeks, sooner if needed. X-rays of the pelvis which were obtained while in the office today and were reviewed by me, Kathryn Castillo PA-C, revealed intact orthopedic hardware with satisfactory alignment. No evidence of dislocation, hardware loosening or periprosthetic fracture. Orders: Orders XR pelvis 1-2V Today M25.559 - Pain in unspecified hip Coding Level of Care Code Global (51359) Diagnoses Status post left hip replacement Z96.642
--- OUTSIDE RECORDS SUMMARY | 2025-03-16 12:15 | XMS_ITS | Clinical Summary ---
[facility] Organization [facility] Address [address] [place] [address] Care Team Providers Care Bindery Helper Name Role Phone Tari Nam Primary Care Provider [phone] Surgical History Surgery Date Site/Laterality Comments TUBAL LIGATION Bilateral PROCEDURE: HISTORICAL TUBAL LIGATION BLADDER SUSPENSION PROCEDURE: HISTORICAL BLADDER SUSPENSION HERNIA REPAIR PROCEDURE: HISTORICAL HERNIA REPAIR/UMB Social History Tobacco Use Types Packs/Day Years Used Date Smoking Tobacco: Every Day Smokeless Tobacco: Never Alcohol Use Standard Drinks/Week Comments Not Currently 0 (1 standard drink = 0.6 oz pur e alcohol) Comments Unknown Sex and Gender Information Value Date Recorded Sex Assigned at Not on file Legal Sex Female 10:47 PM EST Gender Identity Not on file Sexual Orientation [...] Last Done Comments Breast Cancer Screening 1968 Hepatitis B Vaccines (1 of 3 - 19+ 3-dose series) 1987 Pneumococcal Vaccine: 50+ Ye ars (1 of 2 - PCV) 1987 Pneumococcal Vaccine: Pediat rics (0 to 5 Years) and At-Risk Patients (6 to 64 Years) (1 of 2 - PCV) 1987 Cervical Cancer Screening: P ap Smear 1989 Zoster Vaccines (1 of 2) 2018 Colorectal Cancer Screening: Colonoscopy 10/18/2022 Depression Screening 10/18/2022 HIV Screening 10/18/2022 Hepatitis C Screening 10/18/2022 Social Influencers of Health Screening 10/18/2022 COVID-19 Vaccine (1 - 2023-2 5 season) 2024 DTaP,Tdap,and Td Vaccines (2 - Td or Tdap) 06/05/2025 06/05/2015 Influenza Vaccine (Season Ended) 2025 HIB Vaccines Aged Out No longer eligi [...] patient's age to complete this topic Meningococcal B Vaccine Aged Out No l onger eligible based on patient's age to complete this topic RSV Immunization Patients Un zhao 20 months Aged Out No longer eligible b ased on patient's age to complete this topic Varicella Vaccines Aged Out No longer eligible based on patient's age to complete this topic Care Teams Bindery Helper Relationship Specialty Start Date End Date Tari Nam PCP - General 06/28/24
--- OUTSIDE RECORDS SUMMARY | 2025-03-16 12:15 | XMS_ITS | Clinical Summary ---
Author Organization [facility] Address [address] [place] [address] Care Team Providers Care Meter Installer And Remover Name Role Phone Tari Nam MEGAN Primary [...] mmhg . lifetime 3 Each 11 09/11/20 Active traMADoL (ULTRAM) 50 mg tabletIndications: Primary osteoarthritis of right knee,Primary osteoarthritis of left hip Take 1 Tablet by mouth 4 (four) times daily as needed for pain 20 Tablet 10/30/20 Active Active Problems Problem Noted Date Diagnosed Date Osteoarthritis of right knee 09/11/2024 Class 1 obesity due to exces s calories with serious comorbidity and body mass index (BMI) of 33.0 to 33.9 in adult 09/11/2024 Varicose veins of both lower extremities 024 Chronic left hip pain 03/01/2024 Primary osteoarthritis of left hip 03/01/2024 Overview (09/11/2024): 09/11/24: at [place], with , going to [place] she will have surgery post therapy in 2 week tisha garcia. Vitamin D deficiency 01/26/2021 Arthritis 08/08/2019 Overview (10/29/2022): 10/29/22: Xray of hip shows arthritis, treatment includes. She will like to hold off on inj and surgery at this time. Taking naproxen when pain is severe Encounters Date Type Department Care Team Description 12/21/2024 2:20 PM EST Telemedicine Visit [address] [phone] Tari aNm NP Chronic frontal sinusitis (Primary Dx) from Last 3 Months Immunizations Immunization Administration Dates Next Due Flu, Multi Dose 0.5 ML 08/27/2020 Flu, Preservative Free 08/05/2023,10/29/2022 Hep B,adult,adjuvanted (HEPLISAV) 03/01/2024 Influenza (FLUBLOK),recombinant,injectable,preservative Free 09/11/2024 PNEUMOCOCCAL CONJUGATE PCV 20 (Prevnar) 03/01/20 PNEUMOCOCCAL POLYSACCHARIDE PPV23 (Pneumovax 23) 01/16/2021 TDAP 08/08/2019,06/05/2015 ZOSTER VACCINE, RECOMBINANT (SHINGRIX) [...] 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 Not on file Not on file Last Filed Vital Signs Vital Sign Reading [...] Health Maintenance Due Date Last Done Comments Anxiety Screening 1968 HPV Screening 1968 Pap + HPV [address] Colonography 2013 Colonoscopy 2013 Colorectal Cancer Screening 2013 FIT/gFOBT 2013 Fecal DNA 2013 Flexible Sigmoidoscopy 2013 Imm-Hepatitis B (2 of 2 - Cp G 2-dose series) 03/29/2024 03/01/2024 [id number] () 07/16/2024 021 Depression Monitoring 03/20/2025 12/21/2024 , 09/11/2024, [...] Procedure Name Priority Date/Time Associated Diagnosis Comments REFERRAL SCANNED DOCUMENT 02/01/2025 3:00 AM EDT REFERRAL SCANNED DOCUMENT 01/11/2025 3:00 AM EST REFERRAL SCANNED DOCUMENT 12/22/2024 3:00 AM EST IMAGING SCANNED DOCUMENT 12/22/2024 3:00 AM EST IMAGING SCANNED DOCUMENT 12/22/2024 3:00 AM EST LIPID PANEL Routine 11/27/2024 2:29 PM EST Routine general medical examination at a [facility] care facility Class 1 obesity due to excess calories with serious comorbidity and body mass index (BMI) of 33.0 to 33.9 in adult COMPREHENSIVE METABOLIC PANEL Routine 07/03/2024 3:43 PM EDT Preoperative clearance REFERRAL FOR MAMMOGRAM Routine 3:00 AM EDT Breast cancer screening by mammogram HIV 11/16 AG & AB W/RFLX (4TH GEN) Routine 10/29/2022 3:21 PM EST Screening examination for venereal disease HEPATITIS C DIAGNOSTIC (LLMM) Routine 01/06/2021 10:59 AM EST Need for hepatitis C screening test from Last 3 Months or Most Recently Relevant to Health Maintenance Results * REFERRAL SCANNED DOCUMENT (02/01/2025 3:00 AM EDT) Only the most recent of3 resultswithin the time period is included. 02/01/2025 3:00 AM EDT us Tari Nam PULPING MACHINE OPERATOR SCAN REFERRAL Final Result * IMAGING SCANNED DOCUMENT (12/22/2024 3:00 AM EST) Only the most recent of2 resultswithin the time period is included. 12/22/2024 3:00 AM EST us Tari Nam PULPING MACHINE OPERATOR SCAN IMAGING Final Result * (ABNORMAL) LIPID PANEL (11/27/2024 2:29 PM EST) CHOLESTEROL, TOTAL 140 <200 mg/dL [facility] HDL CHOLESTEROL 49(L) > OR = 50 mg/dL [facility] TRIGLYCERIDES 83 <150 mg/dL [facility] LDL-CHOLESTEROL 74 99 mg/dL (calc) [facility] Comment: Reference range: <100 Desirable range <100 mg/dL for primary prevention; ?? <70 mg/dL for patients with CHD or diabetic patients with > or = 2 CHD risk factors. LDL-C is now calculated using the Oneal calculation, which is a validated novel method providing better accuracy than the Friedewald equation in the estimation of LDL-C. Zak SS et al. DARSHAN. 2013;310(19): 7158-1722 (http://education.[employer]/faq/NOL248) CHOL/HDLC RATIO 2.9 <5.0 (calc) [facility] NON-HDL CHOLESTEROL 91 <130 mg/dL (calc) [facility] [employer] Comment: For patients with diabetes plus 1 major ASCVD risk factor, treating to a non-HDL-C goal of <100 mg/dL (LDL-C of <70 mg/dL) is considered a therapeutic option. Blood Blood / Unknown 11/27/2024 2 :29 PM EST 11/27/2024 2:30 PM EST Narrative [facility] - 11/28/2024 5:30 AM EST FASTING:NO us Tari Nam NP LAB - BLOOD DRAW Final Resul t [facility] [address] [address], [facility] [address] [place] [address] * (ABNORMAL) COMPREHENSIVE METABOLIC PANEL (07/03/2024 3:43 PM EDT) GLUCOSE 97 65 - 99 mg/dL [facility] Comment: ?Fasting reference interval UREA NITROGEN (BUN) 12 7 - 25 mg/dL [facility] CREATININE (blood) 0.47(L) 0.50 - 1.03 mg/dL [facility] EGFR 112 > OR = 60 mL/min/1. 73m2 [facility] BUN/CREATININE RATIO 26(H) 6 - 22 (calc) [facility] SODIUM 138 135 - 146 mmol/L [facility] POTASSIUM 3.9 3.5 - 5.3 mmol/L [facility] CHLORIDE 106 98 - 110 mmol/L [facility] CARBON DIOXIDE 27 20 - 32 mmol/L [facility] CALCIUM 9.1 8.6 - 10.4 mg/dL [facility] PROTEIN, TOTAL 6.8 6.1 - 8.1 g/dL [facility] ALBUMIN 4.1 3.6 - 5.1 g/dL [facility] GLOBULIN 2.7 1.9 - 3.7 g/dL (calc) [facility] ALBUMIN/GLOBULI N RATIO 1.5 1.0 - 2.5 (calc) [facility] BILIRUBIN, TOTAL 0.3 0.2 - 1.2 mg/dL [facility] ALKALINE PHOSPHATASE 105 37 - 153 U/L [facility] AST 15 10 - 35 U/L [facility] ALT 9 6 - 29 U/L [facility] Blood Blood / Unknown 07/03/2024 3 :43 PM EDT 07/03/2024 3:43 PM EDT Tari Nam PULPING MACHINE OPERATOR LAB - BLOOD DRAW Edited Resu lt - Final [facility] [address] [address], [facility] [address] [place] [address] * REFERRAL FOR MAMMOGRAM (04/21/2024 3:00 AM EDT) 04/21/2024 3:00 AM EDT Santana Briggs PA-C IMG RFL MAMMO Edited Resul t - Final * HIV 1/2 AG & AB W/RFLX (4TH GEN) (10/29/2022 3:21 PM EST) HIV AG/AB, 4TH GEN NON-REAC TIVE NON-REAC TIVE [facility] Comment: HIV-1 antigen and HIV-1/HIV-2 antibodies were [...] ?? For additional information please refer to http://education.[employer].TrafficLand/faq/WNT308 (This link is being provided for informational/ educational purposes only.) The performance of this assay has not been clinically validated in patients less than 2 years old. Blood Blood / Unknown 10/29/2022 3 :21 PM EST 10/29/2022 3:22 PM EST Narrative [facility] [employer] - 11/01/2022 7:54 AM EST COLLECTION KIT GIVEN TO PATIENT. PATIENT ADVISED TO RETURN. Tari Nam PULPING MACHINE OPERATOR LAB - BLOOD DRAW Final Resul t Performing Organization Address [facility]/ZIP Co de Phone Number [facility] [employer] [address] [facility] [address] [place] [address], [facility] [address] [facility] (NL[address]) [place] [address] * HEPATITIS C DIAGNOSTIC (LLMM) (01/06/2021 10:59 AM EST) HEPATITIS C VIRUS DIAGNOSTIC NEGATIVE NEGATIVE [facility] 01/06/2021 10:5 9 AM EST 01/06/2021 4:00 PM EST Narrative [facility] - 01/06/2021 5:50 PM EST [employer], [place] [address] Maintenance Supervisor 2Nd Shift - Christy Oviedo MD PT ID [id number] ORD# [id number] Santana Briggs PA-C LAB - BLOOD DRAW Edited Resu lt - Final Performing Organization Address City/[facility] Co de Phone Number [facility] [employer] [address], from Last 3 Months or Most Recently Relevant to Health Maintenance Insurance [employer] Care Teams Meter Installer And Remover Relationship Specialty Start Date End Date Tari Nam NP [address] [place] [address] PCP - General Internal Medicine 08/05/22
== END 2025-03-16 11:50 | disposition home or self-care (01) ==
LOC: HO.HOS 11:13
PROVIDERS: PCP Nurse Practitioner; Visit Provider Physician Assistant
DX: Z47.1 Aftercare following joint replacement surgery (principal); Z96.642 Presence of left artificial hip joint
CPT/HCPCS: 99024

== ENCOUNTER → 2025-03-16 11:17 | Outpatient (BNV) | payer OTHER, SELFPAY | PROVIDERS: Visit Provider Radiology Diagnostic Radiology | DX: M25.559 Pain in unspecified hip (principal) | CPT/HCPCS: 72170 ==

== ENCOUNTER 2025-05-22 09:57 | Outpatient (REF) | payer OTHER, SELFPAY ==
--- NOTE | ~2025-05-22 | XR_ITS ---
EXAMINATION: XR PELVIS CLINICAL INFORMATION: M25.559 - Pain in unspecified hip COMPARISON: March 16, 2025 TECHNIQUE: AP view of the pelvis. FINDINGS: Stable left total hip replacement without signs of loosening is again noted. The right hip joint demonstrates marginal osteophytes involving the femoral head and acetabular roof. There is mild axial right hip joint space narrowing. Upper pelvis is not included on the x-ray. XR/XR pelvis 1-2V IMPRESSION: Mild to moderate right hip osteoarthritis. Total hip replacement on the left. Electronically signed by: Maurice Alcala MD 05/22/2025 11:23 AM EDT
--- OUTSIDE RECORDS SUMMARY | 2025-05-23 10:36 | XMS_ITS | Clinical Summary ---
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 Vitamin D deficiency 01/26/2021 Arthritis 08/08/2019 Overview (10/29/2022): 10/29/22: Xray of hip shows arthritis, treatment includes. She will like to hold off on inj and surgery at this time. 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 care facility Class 1 obesity due [...] AM EDT) RHEUMATOID FACTOR <10 <14 IU/mL [facility] CYCLIC CITRULLINATED PEPTIDE CCP AB IGG <16 19 UNITS [facility] Comment: Reference Range Negative: <20 Weak Positive: 20-39 Moderate Positive: 40-59 Strong Positive: >59 INTERPRETATION See Note [facility] Comment: These serologic results may be found in 10-20% of patients with polyarthritis that is clinically and radiologically indistinguishable from RA. Blood Blood / Unknown 03/23/2025 1 1:29 AM EDT 03/23/2025 11:31 AM EDT Tari Nam NP LAB - BLOOD DRAW Final Resul t [employer] [address] [place] [id number], [facility] [address] [place] [id number] * ??MARCELA SCREEN, IFA, WITH REFLEX TO TITER AND PATTERN/MIXED CONNECTIVE PANEL 2 (03/23/2025 11:29 AM EDT) Pathologist [facility] MARCELA SCREEN NEGATIVE NEGATIVE [employer] [facility] Comment: MARCELA IFA is a first line [...] AC-0: Negative International Consensus on MARCELA Patterns (https://doi.org/10.1515/fxzk-2638-4283) For additional information, please refer to http://education.[employer] [place]/faq/ZAX837 (This link is being provided for informational/ educational purposes only.) Blood Blood / Unknown 03/23/2025 1 1:29 AM EDT 03/23/2025 11:31 AM EDT us Tari Nam NP LAB - BLOOD DRAW Edited Resu lt - Final Performing Organization Address City/[facility]/ZIP Co de Phone Number [facility] [address] [address], [place] [facility] [address] [address] * VITAMIN D, 1,25-DIHYDROXY (03/23/2025 11:29 AM EDT) Pathologist [facility] VITAMIN D, 1, 25 (OH)2, TOTAL 52 18 - 72 pg/mL [facility] VITAMIN D3, 1, 25 (OH)2 52 pg/mL [facility] [employer] VITAMIN D2, 1, 25 (OH)2 <8 pg/mL [facility] [employer] Comment: Vitamin D3, 1,25(OH)2 indicates both endogenous production and supplementation. Vitamin D2, 1,25(OH)2 is an indicator of exogenous sources, such as diet or supplementation. Interpretation and therapy are based on measurement of Vitamin D,1,25(OH)2, Total. This test was developed and its analytical performance characteristics have been determined by [facility], [place], [place]. It has not been cleared or approved by the FDA. This assay has been validated pursuant to the CLIA regulations and is used for clinical purposes. Blood Blood / Unknown 03/23/2025 1 1:29 AM EDT 03/23/2025 11:31 AM EDT us Tari Nam NP LAB - BLOOD DRAW Final Resul t Performing Organization Address City/[facility]/ZIP Co de Phone Number [employer] [place] [address] [place], [place] , [facility]/[employer] [place] [address] [place], [place] * SEDIMENTATION RATE RBC AUTOMATED (03/23/2025 11:29 AM EDT) Pathologist [facility] SED RATE BY MODIFIED WESTERGREN 28 0 - 30 mm/h [facility] Blood Blood / Unknown 03/23/2025 1 1:29 AM EDT 03/23/2025 11:31 AM EDT Tari Nam NP LAB - BLOOD DRAW Edited Resu lt - Final [employer] [address] [address], [facility] [address] [place] [address] * (ABNORMAL) BLOOD COUNT COMPLETE AUTOMATED (03/23/2025 11:29 AM EDT) [facility] WHITE BLOOD CELL COUNT 6.5 3.8 - 10.8 Thousand/ uL [facility] RED BLOOD CELL COUNT 4.02 3.80 - 5.10 Million/u L [facility] HEMOGLOBIN 13.2 11.7 - 15.5 g/dL [facility] HEMATOCRIT 40.4 35.0 - 45.0 % [facility] MCV 100.5(H) 80.0 - 100.0 fL [facility] MCH 32.8 27.0 - 33.0 pg [facility] MCHC 32.7 32.0 - 36.0 g/dL [facility] Comment: For adults, a slight decrease in the calculated MCHC value (in the range of 30 to 32 g/dL) is most likely not clinically significant; however, it should be interpreted with caution in correlation with other red cell parameters and the patient's clinical condition. RDW 11.1 11.0 - 15.0 % [facility] PLATELET COUNT 240 140 - 400 Thousand/ uL [facility] MPV 10.0 7.5 - 12.5 fL [facility] 03/23/2025 11:2 9 AM EDT 03/23/2025 11:31 AM EDT Tari Nam NP LAB - BLOOD DRAW Edited Resu lt - Final [employer] [address] [address], [employer] [facility] [address] [place] [address] * (ABNORMAL) LIPID PANEL (11/27/2024 2:29 PM EST) Pathologist [facility] CHOLESTEROL, TOTAL 140 <200 mg/dL [employer] [facility] HDL CHOLESTEROL 49(L) > OR = 50 mg/dL [employer] [facility] TRIGLYCERIDES 83 <150 mg/dL [employer] [facility] LDL-CHOLESTEROL 74 99 mg/dL (calc) [employer] [facility] Comment: Reference range: <100 Desirable range <100 mg/dL for primary prevention; <70 mg/dL for patients with CHD or diabetic patients with > or = 2 CHD risk factors. LDL-C is now calculated using the Oneal calculation, which is a validated novel method providing better accuracy than the Friedewald equation in the estimation of LDL-C. Zak WINSTON et al. DARSHAN. 2013;310(19): 8471-3182 (http://education.[employer]/faq/PQZ083) CHOL/HDLC RATIO 2.9 <5.0 (calc) [employer] [facility] NON-HDL CHOLESTEROL 91 <130 mg/dL (calc) [employer] [facility] Comment: For patients with diabetes plus 1 major ASCVD risk factor, treating to a non-HDL-C goal of <100 mg/dL (LDL-C of <70 mg/dL) is considered a therapeutic option. Blood Blood / Unknown 11/27/2024 2 :29 PM EST 11/27/2024 2:30 PM EST Narrative [employer] [facility] - 11/28/2024 5:30 AM EST FASTING:NO us Tari Nam NP LAB - BLOOD DRAW Final Resul t [employer] [facility] [address] [address], [employer] [facility] [address] [place] [address] * (ABNORMAL) COMPREHENSIVE METABOLIC PANEL (07/03/2024 3:43 PM EDT) [facility] GLUCOSE 97 65 - 99 mg/dL [employer] [facility] Comment: Fasting reference interval UREA NITROGEN (BUN) 12 7 - 25 mg/dL [employer] [facility] CREATININE (blood) 0.47(L) 0.50 - 1.03 mg/dL [employer] [facility] EGFR 112 > OR = 60 mL/min/1. 73m2 [employer] [facility] BUN/CREATININE RATIO 26(H) 6 - 22 (calc) [employer] [facility] SODIUM 138 135 - 146 mmol/L [employer] [facility] POTASSIUM 3.9 3.5 - 5.3 mmol/L [employer] [facility] CHLORIDE 106 98 - 110 mmol/L [employer] [facility] CARBON DIOXIDE 27 20 - 32 mmol/L [employer] [facility] CALCIUM 9.1 8.6 - 10.4 mg/dL [employer] [facility] PROTEIN, TOTAL 6.8 6.1 - 8.1 g/dL [employer] [facility] ALBUMIN 4.1 3.6 - 5.1 g/dL [employer] [facility] GLOBULIN 2.7 1.9 - 3.7 g/dL (calc) [employer] [facility] ALBUMIN/GLOBULI N RATIO 1.5 1.0 - 2.5 (calc) [employer] [facility] BILIRUBIN, TOTAL 0.3 0.2 - 1.2 mg/dL [employer] [facility] ALKALINE PHOSPHATASE 105 37 - 153 U/L [employer] [facility] AST 15 10 - 35 U/L [employer] [facility] ALT 9 6 - 29 U/L [employer] [facility] Blood Blood / Unknown 07/03/2024 3 :43 PM EDT 07/03/2024 3:43 PM EDT Tari Nam NP LAB - BLOOD DRAW Edited Resu lt - Final [employer] [address] [address], [employer] [address] [address] * REFERRAL FOR MAMMOGRAM SCREENING (04/21/2024 3:00 AM EDT) 04/21/2024 3:00 AM EDT Santana Briggs PA-C IMG RFL MAMMO Edited Resul t - Final * HIV 1/2 AG & AB W/RFLX (4TH GEN) (10/29/2022 3:21 PM EST) HIV AG/AB, 4TH GEN NON-REAC TIVE NON-REAC TIVE [employer] [facility] Comment: HIV-1 antigen and HIV-1/HIV-2 antibodies were [...] purpose. For additional information please refer to http://education.[employer]/faq/AZZ459 (This link is being provided for informational/ educational purposes only.) The performance of this assay has not been clinically validated in patients less than 2 years old. Blood Blood / Unknown 10/29/2022 3 :21 PM EST 10/29/2022 3:22 PM EST Narrative [employer] [facility] - 11/01/2022 7:54 AM EST COLLECTION KIT GIVEN TO PATIENT. PATIENT ADVISED TO RETURN. Tari Nam NP LAB - BLOOD DRAW Final Resul t [employer] [address] [address], [employer] [address]) [place] [address] * HEPATITIS C DIAGNOSTIC (LLMM) (01/06/2021 10:59 AM EST) HEPATITIS C VIRUS DIAGNOSTIC NEGATIVE NEGATIVE [facility] 01/06/2021 10:5 9 AM EST 01/06/2021 4:00 PM EST [facility] - 01/06/2021 5:50 PM EST [employer], [place] [address] Casting Associate - Christy Oviedo MD PT ID [id number] ORD# [id number] Santana Briggs PA-C LAB - BLOOD DRAW Edited Resu lt - Final [facility] [address] [place] [address], from Last 3 Months or Most Recently Relevant to Health Maintenance Insurance [employer] Care Teams Grinding 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
--- OUTSIDE RECORDS SUMMARY | 2025-05-23 10:36 | XMS_ITS | Clinical Summary ---
Author Organization [facility] Address [address] [place] [address] Care Team Providers Care Certified Technician Name Role Phone Tari Nam Primary Care Provider [phone] Surgical History Surgery Date Site/Laterality Comments TUBAL [...] age to complete this topic Care Teams Certified Technician Relationship Specialty Start Date End Date Tari Nam PCP - General 06/28/24
== END 2025-05-22 09:58 | disposition home or self-care (01) ==
LOC: HO.HOSX 09:57
PROVIDERS: Visit Provider Physician Assistant
DX: M16.11 Unilateral primary osteoarthritis, right hip (principal); M25.551 Pain in right hip; Z96.642 Presence of left artificial hip joint
CPT/HCPCS: 72170

== ENCOUNTER 2025-05-22 11:06 | Outpatient (AMB) | payer OTHER, SELFPAY ==
--- NOTE | 2025-05-22 11:15 | A.OFFVIS_ITS ---
Vital Signs 05/22/25 11:20 Height 5 ft Weight 165 lb BMI 32.2 Intake Visit Reasons: OV - left SINGH 12/27/24 NE Intake Note: Brit is a 54 year old female who presents today for a follow up appointment s/p left total hip arthroplasty 12/27/24 NE. Patient reports she is doing well. She notices some discomfort in her hip at times. Allergies No Known Allergies Allergy (Verified 05/22/25 11:19) HPI HPI OV - left SINGH 12/27/24 NE: Details: Ms. Lau is a 54-year-old female who presents to the office today status post left total hip arthroplasty performed on 12/27/[address] Mckinney. She reports that occasionally she has some slight discomfort in the groin area but has much improved since the last visit. She is in the longer attending any physical therapy and is not walking with any assistive devices. Overall she is very happy with her progress and does not have any concerns. [facility] Medical History (Updated 01/19/25 @ 10:12 by Peggy Alas) Anxiety Osteoarthritis Vitamin D deficiency Arthritis Surgical History (Updated 01/19/25 @ 10:12 by Peggy Alas) History of bladder suspension procedure Hx of umbilical hernia repair Hx of hysterectomy Social History Household Members Other:: brother Housing: House Are you a primary workforce investment act career manager to a significant other at home: No Do you presently have visiting nurse or other home services: No 75 years or older and lives alone: No Patient Tobacco Use Status: Current everyday Tobacco user Tobacco use type: Cigarette Cigarettes Per Day: 1 Second Hand Smoke Exposure: No Substance Use Type: Marijuana service: No Current occupational status: employed 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 No ecchymosis, erythema, or edema. Full hip ROM in all planes. 5/5 strength with resisted hip flexion, knee extension, ab duction, and abduction. Able to perform straight leg raise. NVI. Assessment & Plan Assessment & Plan (1) Status post left hip replacement: Code(s): Z96.642 - Presence of left artificial hip joint Category: Surgical Plan Ms. Lau is a 54-year-old female who presents to the office today status post left total hip arthroplasty performed on 12/27/[address] Mckinney. She reports that occasionally she has some slight discomfort in the groin area but has much improved since the last visit. She is in the longer attending any physical therapy and is not walking with any assistive devices. Overall she is very happy with her progress and does not have any concerns. While the office today, the patient was educated that she can resume back to normal activities as tolerated. She should still follow her posterior precautions. She will follow up at her 1 year postoperative saul, sooner if needed. X-rays of the pelvis which were obtained while in the office today and were reviewed by me, Kathryn Castillo PA-C, revealed intact left total hip arthroplasty with satisfactory alignment. No evidence of periprosthetic fracture or dislocation. Orders: Orders XR pelvis 1-2V Today M25.559 - Pain in unspecified hip Coding Level of Care Code Est Pt Level 3 (64223) Diagnoses Status post left hip replacement Z96.642
[2025-05-22 11:20] VITALS: BMI 32.2
--- OUTSIDE RECORDS SUMMARY | 2025-05-22 12:11 | XMS_ITS | Clinical Summary ---
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 Role Phone NamTari ferguson MEGAN Primary Care Provider [phone] Source Comments PLEASE NOTE, if this patient [...] for pain 20 Tablet 10/30/20 24 Active Additional Information Patient not taking.Reported on 03/23/2025 ibuprofen 600 mg tabletIndications: Primary osteoarthritis of right knee,Primary osteoarthritis of left hip,Chronic left hip pain Take 1 Tablet by mouth 4 (four) times daily as needed for pain 3030 Tablet 1 03/29/20 25 Active tiZANidine (ZANAFLEX) 2 mg tabletIndications: Primary osteoarthritis of right knee,Primary osteoarthritis of left hip,Chronic left hip pain TAKE 1 TABLET BY MOUTH EVERY 6 HOURS NEEDED FOR MUSCLE SPASMS 15 Tablet 03/30/20 25 Active Active Problems Problem Noted Date Diagnosed Date Osteoarthritis of right knee 09/11/2024 Class 1 obesity due to exces s calories with serious comorbidity and body mass index (BMI) of 33.0 to 33.9 in adult 09/11/2024 Varicose veins of both lower extremities 024 Chronic left hip pain 03/01/2024 Primary osteoarthritis of left hip 03/01/2024 Overview (09/11/2024): 09/11/24: at [place], with , going to [facility] she will have surgery post therapy in 2 week [facility]. Vitamin D deficiency 01/26/2021 Arthritis 08/08/2019 Overview (10/29/2022): 10/29/22: Xray of hip shows arthritis, treatment includes. She will like to hold off on inj and surgery at this time. Taking naproxen when pain is severe Encounters Date Type Department Care Team Description 03/27/2025 Results Follow-Up [address] [phone] Tari Nam NP 03/23/2025 10:40 AM EDT Office Visit [address] [phone] Tari Nam NP from Last 3 Months Immunizations Immunization Administration Dates Next Due Flu, Multi Dose 0.5 ML 08/27/2020 Flu, Preservative Free 08/05/2023,10/29/2022 Hep B,adult,adjuvanted (HEPLISAV) 03/01/2024 Influenza (FLUBLOK),recombinant,injectable,preservative Free 09/11/2024 PNEUMOCOCCAL CONJUGATE PCV 20 (Prevnar 20) 03/01 PNEUMOCOCCAL POLYSACCHARIDE PPV23 (Pneumovax 23) 01/16/2021 TDAP [...] alcohol) Occasional Social Connections Answer Date Recorded How often do you feel lonely or isolated from th ose around you? 1 09/11/2024 Financial Resource Strain Answer Date R ecorded Hard to pay for: Food 1 09/11/2024 Stress Answer Date Recorded Do you feel these kinds of stress these days? 1 09/11/2024 Physical Activity Answer Date Recorded Physical Activity 0 08/08/2019 Food Insecurity Answer Date Recorded Hard to pay for: Food 1 09/11/2024 Transportation Needs Answer Date Record ed Hard to pay for: Transportation 1 09/11/2024 Housing Stability Answer Date Recorded Hard to pay for: Rent/Mortgage payment 1 09/11/2024 Safety and Environment Answer Date Issa rded Safety 1 03/01/2024 Utilities Answer Date Recorded Hard to pay for: Utilities 1 09/11 Employment Answer Date Recorded Stress 0 08/05/2023 Comments No Sex and Gender Information Value Date Recorded Sex Assigned at Female 08/08/2019 2:38 PM PDT Legal Sex Female 8:14 AM PDT Gender Identity Female 08/08/2019 2:38 PM PDT Sexual Orientation Straight 08/08/2019 2: 38 PM PDT 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 file Not on file Not on file Last Filed Vital Signs Vital Sign Reading Time Taken Comments Blood Pressure 110/70 03/23/2025 10:37 AM EDT Pulse 65 03/23/2025 10:37 AM EDT Temperature 36.6 C (97.9 F) 03/23/2025 10:37 AM EDT Respiratory Rate 18 03/23/2025 10:37 AM EDT Oxygen Saturation 100% 03/23/2025 10:37 AM EDT Inhaled Oxygen Concentration - - Weight 79.8 kg (176 lb) 03/23/2025 10:37 AM EDT Height 152.4 cm (5') 03/23/2025 10:37 AM EDT Body Mass Index 34.37 03/23/2025 10:37 AM EDT Plan of Treatment Health Maintenance Due Date Last Done Comments HPV Screening 1968 Pap + HPV [address] Colonography 2013 Colonoscopy 2013 Colorectal Cancer Screening 2013 FIT/gFOBT 2013 Fecal DNA 2013 Flexible Sigmoidoscopy 2013 Imm-Hepatitis B (2 of 2 - Cp G 2-dose series) 03/29/2024 03/01/2024 [id number] ( season) 2024 12/16/2021, 07/30/2021, 07/01/2021 Breast Cancer Screening (Mammogram) 04/21/2025 04/21/2024, 03/29/2023, 02/13/2022 Imm-Influenza (#1) 2025 09/11/2024, 0 08/05/2023, 10/29/2022, Additional history exists Annual Wellness (Adult): Indicated (All Coverage) 09/11/2025 09/11/2024, 10/29/2022, 01/16/2021 Anxiety Screening 09/11/2025 09/11/2024 Tobacco Cessation Counseling (#1) 11/27/2025 11/27/2024, 07/03/2024, 01/16/2021 Hypertension Screening (#1) 03/23/2026 Diabetes Screening 07/03/2027 07/03/2024, 0 07/03/2024, 08/25/2022, Additional history exists Lipid Screening 11/27/2027 11/27/2024, 08/15, 01/06/2021, Additional history exists Imm-DTaP/Tdap/Td (3 - Td or Tdap) 08/08/2029 019, 06/05/2015 Hepatitis C Screening Completed 01/06/2021 HIV Screening Completed 10/29/2022, 12/17, 08/10/2019 Imm-Zoster, Recombinant Completed 02/26/2023, 01/16 Imm-Pneumococcal 50+ Completed 03/01/2024, 01/17/20 21 Alcohol and Drug Screen Completed 11/27/19, 09/11/2024, 07/03/2024, Additional history exists Depression Annual Screen Completed 12/21/2024, 02/13 Cervical Ablation/Cold-Knife Conization Discontinued Cervical Cancer Screening Discontinued Cervical Cryotherapy Discontinued Colposcopy Discontinued Endometrial Biopsy Discontinued Excision/Leep Discontinued HPV Genotyping Discontinued Vaginal Pap Discontinued Vulvoscopy Discontinued Procedures Procedure Name Priority Date/Time Associated Diagnosis Comments REFERRAL SCANNED DOCUMENT 03/30/2025 3:00 AM EDT BLOOD COUNT COMPLETE AUTOMATED Routine 03/23/2025 11:29 AM EDT SEDIMENTATION RATE RBC AUTOMATED Routine 03/23/2025 11:29 AM EDT Bilateral leg pain Multiple joint pain MARCELA SCREEN, IFA, WITH REFLEX TO TITER AND PATTERN/MIXED CONNECTIVE PANEL 2 Routine 03/23/2025 11:29 AM EDT Bilateral leg pain Multiple joint pain RHEUMATOID ARTHRITIS DIAGNOSTIC PANEL 1 Routine 03/23/2025 11:29 AM EDT Bilateral leg pain Multiple joint pain VITAMIN D, 1,25-DIHYDROXY Routine 03/23/2025 11:29 AM EDT Bilateral leg pain Multiple joint pain REFERRAL SCANNED DOCUMENT 03/16/2025 3:00 AM EDT LIPID PANEL Routine 11/27/2024 2:29 PM EST Routine [facility] Class 1 obesity due [...] Health Maintenance Results * REFERRAL SCANNED DOCUMENT (03/30/2025 3:00 AM EDT) Only the most recent of2 resultswithin the time period is included. 03/30/2025 3:00 AM EDT Paz Do SCAN REFERRAL Final Result * RHEUMATOID ARTHRITIS DIAGNOSTIC PANEL 1 (03/23/2025 11:29 AM EDT) RHEUMATOID FACTOR <10 <14 IU/mL [facility] CYCLIC CITRULLINATED PEPTIDE CCP AB IGG <16 19 UNITS [facility] Comment: Reference Range Negative: <20 Weak Positive: 20-39 Moderate Positive: 40-59 Strong Positive: >59 INTERPRETATION See Note [facility] Comment: These serologic results may be found in 10-20% of patients with polyarthritis that is clinically and radiologically indistinguishable from RA. Blood Blood / Unknown 03/23/2025 1 1:29 AM EDT 03/23/2025 11:31 AM EDT Tari Nam NP LAB - BLOOD DRAW Final Resul t [facility] [address] [place] [id number], [facility] [address] [place] [phone] * ??MARCELA SCREEN, IFA, WITH REFLEX TO TITER AND PATTERN/MIXED CONNECTIVE PANEL 2 (03/23/2025 11:29 AM EDT) Pathologist [facility] MARCELA SCREEN NEGATIVE NEGATIVE [facility] Comment: MARCELA IFA is a first line screen for detecting the presence of up to approximately 150 autoantibodies in various autoimmune diseases. A negative MARCELA IFA result suggests an MARCELA-associated autoimmune disease is not present at this time, but is not definitive. If there is high clinical suspicion for Sjogren's syndrome, testing for anti-SS-A/Ro antibody should be considered. Anti-Julia-1 antibody should be considered for clinically suspected inflammatory myopathies. AC-0: Negative International Consensus on MARCELA Patterns (https://doi.org/10.1515/qqir-6081-4896) For additional information, please refer to http://education.Tauntr.Car[employer]ated Content/faq/DUT360 (This link is being provided for informational/ educational purposes only.) Blood Blood / Unknown 03/23/2025 1 1:29 AM EDT 03/23/2025 11:31 AM EDT us Tari Nam NP LAB - BLOOD DRAW Edited Resu lt - Final Performing Organization Address City/[facility]/ZIP Co de Phone Number [facility] [address] [address], [place] [facility] [address] [address] * VITAMIN D, 1,25-DIHYDROXY (03/23/2025 11:29 AM EDT) Pathologist [facility] VITAMIN D, 1, 25 (OH)2, TOTAL 52 18 - 72 pg/mL [facility] VITAMIN D3, 1, 25 (OH)2 52 pg/mL [facility] VITAMIN D2, 1, 25 (OH)2 <8 pg/mL [facility] Comment: Vitamin D3, 1,25(OH)2 indicates both endogenous production and supplementation. Vitamin D2, 1,25(OH)2 is an indicator of exogenous sources, such as diet or supplementation. Interpretation and therapy are based on measurement of Vitamin D,1,25(OH)2, Total. This test was developed and its analytical performance characteristics have been determined by [facility] [place], [place]. It has not been cleared or approved by the FDA. This assay has been validated pursuant to the CLIA regulations and is used for clinical purposes. Blood Blood / Unknown 03/23/2025 1 1:29 AM EDT 03/23/2025 11:31 AM EDT us Tari Nam NP LAB - BLOOD DRAW Final Resul t Performing Organization Address City/[facility]/ZIP Co de Phone Number [facility] [place] [address] [place], [place] , [facility] [place] [address] [place], [place] * SEDIMENTATION RATE RBC AUTOMATED (03/23/2025 11:29 AM EDT) Pathologist [facility] SED RATE BY MODIFIED WESTERGREN 28 0 - 30 mm/h [facility] Blood Blood / Unknown 03/23/2025 1 1:29 AM EDT 03/23/2025 11:31 AM EDT Tari Nam NP LAB - BLOOD DRAW Edited Resu lt - Final [facility] [address] [address], [facility] [address] [place] [address] * (ABNORMAL) BLOOD COUNT COMPLETE AUTOMATED (03/23/2025 11:29 AM EDT) [facility] WHITE BLOOD CELL COUNT 6.5 3.8 - 10.8 Thousand/ uL [facility] RED BLOOD CELL COUNT 4.02 3.80 - 5.10 Million/u L [facility] HEMOGLOBIN 13.2 11.7 - 15.5 g/dL [facility] HEMATOCRIT 40.4 35.0 - 45.0 % [facility] MCV 100.5(H) 80.0 - 100.0 fL [facility] MCH 32.8 27.0 - 33.0 pg [facility] MCHC 32.7 32.0 - 36.0 g/dL [facility] Comment: For adults, a slight decrease in the calculated MCHC value (in the range of 30 to 32 g/dL) is most likely not clinically significant; however, it should be interpreted with caution in correlation with other red cell parameters and the patient's clinical condition. RDW 11.1 11.0 - 15.0 % [facility] PLATELET COUNT 240 140 - 400 Thousand/ uL [facility] MPV 10.0 7.5 - 12.5 fL [facility] 03/23/2025 11:2 9 AM EDT 03/23/2025 11:31 AM EDT Tari Nam NP LAB - BLOOD DRAW Edited Resu lt - Final [facility] [address] [address], [facility] [address] [place] [address] * (ABNORMAL) LIPID PANEL (11/27/2024 2:29 PM EST) Pathologist [facility] CHOLESTEROL, TOTAL 140 <200 mg/dL [facility] HDL CHOLESTEROL 49(L) > OR = 50 mg/dL [facility] TRIGLYCERIDES 83 <150 mg/dL [facility] LDL-CHOLESTEROL 74 99 mg/dL (calc) [facility] Comment: Reference range: <100 Desirable range <100 mg/dL for primary prevention; <70 mg/dL for patients with CHD or diabetic patients with > or = 2 CHD risk factors. LDL-C is now calculated using the Oneal calculation, which is a validated novel method providing better accuracy than the Friedewald equation in the estimation of LDL-C. Zak WINSTON et al. DARSHAN. 2013;310(19): 8276-5913 (http://education.SouthDoctors/faq/ZCS560) CHOL/HDLC RATIO 2.9 <5.0 (calc) [facility] NON-HDL CHOLESTEROL 91 <130 mg/dL (calc) [facility] Comment: For patients with diabetes plus 1 major ASCVD risk factor, treating to a non-HDL-C goal of <100 mg/dL (LDL-C of <70 mg/dL) is considered a therapeutic option. Blood Blood / Unknown 11/27/2024 2 :29 PM EST 11/27/2024 2:30 PM EST Narrative [facility] - 11/28/2024 5:30 AM EST FASTING:NO us Tari Nam NP LAB - BLOOD DRAW Final Resul t [facility] [address] [address], [facility] [address] [place] [address] * (ABNORMAL) COMPREHENSIVE METABOLIC PANEL (07/03/2024 3:43 PM EDT) [facility] GLUCOSE 97 65 - 99 mg/dL [facility] Comment: Fasting reference interval UREA NITROGEN (BUN) 12 7 - 25 mg/dL [facility] CREATININE (blood) 0.47(L) 0.50 - 1.03 mg/dL [facility] EGFR 112 > OR = 60 mL/min/1. 73m2 [facility] BUN/CREATININE RATIO 26(H) 6 - 22 (calc) [facility] SODIUM 138 135 - 146 mmol/L [facility] POTASSIUM 3.9 3.5 - 5.3 mmol/L [facility] CHLORIDE 106 98 - 110 mmol/L [facility] CARBON DIOXIDE 27 20 - 32 mmol/L [facility] CALCIUM 9.1 8.6 - 10.4 mg/dL [facility] PROTEIN, TOTAL 6.8 6.1 - 8.1 g/dL [facility] ALBUMIN 4.1 3.6 - 5.1 g/dL [facility] GLOBULIN 2.7 1.9 - 3.7 g/dL (calc) [facility] ALBUMIN/GLOBULI N RATIO 1.5 1.0 - 2.5 (calc) [facility] BILIRUBIN, TOTAL 0.3 0.2 - 1.2 mg/dL [facility] ALKALINE PHOSPHATASE 105 37 - 153 U/L [facility] AST 15 10 - 35 U/L [facility] ALT 9 6 - 29 U/L [facility] Blood Blood / Unknown 07/03/2024 3 :43 PM EDT 07/03/2024 3:43 PM EDT Tari Nam NP LAB - BLOOD DRAW Edited Resu lt - Final [facility] [address] [address], [facility] [address] [address] * REFERRAL FOR MAMMOGRAM SCREENING (04/21/2024 3:00 AM EDT) 04/21/2024 3:00 AM EDT Santana Briggs PA-C IMG RFL MAMMO Edited Resul t - Final * HIV 1/2 AG & AB W/RFLX (4TH GEN) (10/29/2022 3:21 PM EST) HIV AG/AB, 4TH GEN NON-REAC TIVE NON-REAC TIVE [facility] Comment: HIV-1 antigen and HIV-1/HIV-2 antibodies were not detected. There is no laboratory evidence of HIV infection. PLEASE NOTE: This information has been disclosed to you from records whose confidentiality may be protected by state law. If your state requires such protection, then the state law prohibits you from making any further disclosure of the information without the specific written consent of the person to whom it pertains, or as otherwise permitted by law. A general authorization for the release of medical or other information is NOT sufficient for this purpose. For additional information please refer to http://education.Intertainment Media/faq/ZHI382 (This link is being provided for informational/ educational purposes only.) The performance of this assay has not been clinically validated in patients less than 2 years old. Blood Blood / Unknown 10/29/2022 3 :21 PM EST 10/29/2022 3:22 PM EST Narrative [facility] - 11/01/2022 7:54 AM EST COLLECTION KIT GIVEN TO PATIENT. PATIENT ADVISED TO RETURN. Tari Nam NP LAB - BLOOD DRAW Final Resul t [facility] [address] [address], [facility] [address]) [place] [address] * HEPATITIS C DIAGNOSTIC (LLMM) (01/06/2021 10:59 AM EST) HEPATITIS C VIRUS DIAGNOSTIC NEGATIVE NEGATIVE [facility] 01/06/2021 10:5 9 AM EST 01/06/2021 4:00 PM EST [facility] 01/06/[facility]21 5:50 PM EST [employer], [place] [address] Accountant Auditor - Christy Oviedo MD PT ID [id number] ORD# [id number] Santana Briggs PA-C LAB - BLOOD DRAW Edited Resu lt - Final [facility] [address] [place] [address], from Last 3 Months or Most Recently Relevant to Health Maintenance Insurance [employer] Care 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
--- OUTSIDE RECORDS SUMMARY | 2025-05-22 12:11 | XMS_ITS | Clinical Summary ---
[facility] Organization [facility] Address [address] [place] [address] Care Team Providers Care Oncology Admin Name Role Phone Tari Nam Primary Care Provider [phone] Surgical History Surgery Date Site/Laterality Comments TUBAL [...] ars (1 of 2 - PCV) 1987 Cervical Cancer Screening: P ap Smear 1989 Zoster Vaccines (1 of 2) 2018 Colorectal Cancer Screening: Colonoscopy 10/18/2022 Depression Screening 10/18/2022 HIV Screening 10/18/2022 Hepatitis C Screening 10/18/2022 Social Influencers of Health Screening 10/18/2022 COVID-19 Vaccine (2023-2 5 season) 2024 DTaP,Tdap,and Td Vaccines (2 - Td or Tdap) 06/05/2025 06/05/2015 Influenza Vaccine (#1) 2025 HIB Vaccines Aged Out No longer [...] age to complete this topic Care Teams Oncology Admin Relationship Specialty Start Date End Date Tari Nam PCP - General 06/28/24
== END 2025-05-22 11:41 | disposition home or self-care (01) ==
LOC: HO.HOS 11:07
PROVIDERS: Visit Provider Physician Assistant
DX: Z47.1 Aftercare following joint replacement surgery (principal); Z96.642 Presence of left artificial hip joint
CPT/HCPCS: 99213

== ENCOUNTER → 2025-05-22 11:08 | Outpatient (BNV) | payer OTHER, SELFPAY | PROVIDERS: Visit Provider Radiology Diagnostic Radiology | DX: M16.11 Unilateral primary osteoarthritis, right hip (principal); Z96.642 Presence of left artificial hip joint | CPT/HCPCS: 72170 ==